=== PATIENT | female | born 1945 | race Caucasian/White ===

== ENCOUNTER 2016-12-10 13:20 | Outpatient (CLI) | payer MEDICARE, OTHER | END 2016-12-10 13:21 | disposition home or self-care (01) | DX: E11.42 Type 2 diabetes mellitus with diabetic polyneuropathy (principal) ==

== ENCOUNTER 2017-04-15 12:35 | Outpatient (CLI) | payer MEDICARE, OTHER | END 2017-04-15 12:36 | disposition home or self-care (01) | DX: K76.0 Fatty (change of) liver, not elsewhere classified (principal) ==

== ENCOUNTER 2017-06-10 13:08 | Outpatient (CLI) | payer MEDICARE, OTHER ==
[2017-06-10 19:48] LABS: ALBUMIN/GLOBULIN RATIO 1.2 (1.0-2.2); BILIRUBIN,TOTAL 0.7 mg/dL (0.2-1.0); BUN - BLOOD UREA NITROGEN 15 mg/dL (6-20); CALCIUM 10.6 mg/dL (8.5-10.3); CARBON DIOXIDE - CO2 27 mmol/L (21-32); CHLORIDE 104 mmol/L (101-111); CHOL/HDL RATIO 4.2 (<4.4); CHOLESTEROL 160 mg/dL; CREATININE 1.1 mg/dL (0.4-1.0); GFR - MDRD 49 (>89); GLUCOSE 96 mg/dL (70-100); HDL CHOLESTEROL 38 mg/dL; LDL/HDL RATIO 2.1 (<4.4); POTASSIUM 3.9 mmol/L (3.5-5.0); SODIUM 140 mmol/L (135-145); TOTAL PROTEIN 7.3 g/dL (6.7-8.2); TRIGLYCERIDES 219 mg/dL; VLDL CHOLESTEROL 44 mg/dL
== END 2017-06-10 13:09 | disposition home or self-care (01) ==
LOC: LAB.N 13:08
PROVIDERS: ATTEND Nurse Practitioner Gerontology
DX: E78.5 Hyperlipidemia, unspecified (principal)
CPT/HCPCS: 36415; 80053; 80061

== ENCOUNTER 2017-07-22 08:00 | Outpatient (CLI) | payer MEDICARE, OTHER ==
[2017-07-22 19:24] LABS: HEMOGLOBIN A1C 1.1 g/dL
== END 2017-07-22 08:01 | disposition home or self-care (01) ==
LOC: LAB.N 08:00
PROVIDERS: ATTEND Nurse Practitioner Gerontology
DX: E11.42 Type 2 diabetes mellitus with diabetic polyneuropathy (principal)
CPT/HCPCS: 36415; 83036

== ENCOUNTER 2017-11-11 09:52 | Outpatient (CLI) | payer MEDICARE, OTHER ==
[2017-11-11 13:05] LABS: HB2 TOTAL 17.2 g/dL; HEMOGLOBIN A1C 0.87 g/dL; HEMOGLOBIN A1C % 6.8 % (4.6-6.2)
== END 2017-11-11 09:53 | disposition home or self-care (01) ==
LOC: LAB.N 09:52
PROVIDERS: ATTEND Nurse Practitioner Gerontology
DX: E11.9 Type 2 diabetes mellitus without complications (principal)
CPT/HCPCS: 36415; 83036

== ENCOUNTER 2017-12-25 08:52 | Outpatient (CLI) | payer MEDICARE, OTHER ==
--- NOTE | 2017-12-25 10:01 | XRAY Report ---
EXAM: CHEST RADIOGRAPHY EXAM DATE: 12/25/2017 09:18 AM. CLINICAL HISTORY: SHORTNESS OF BREATH. COMPARISON: Chest radiograph 05/25/2012. TECHNIQUE: 2 views. FINDINGS: Lungs/Pleura: Increased lung markings. Small left lung base opacity. Blunting left costophrenic angle . Mediastinum: Stable Other: None. IMPRESSION: 1. Obstructive airways disease 2. Small left lung base opacity. Atelectasis or infection 3. Possible small left effusion [facility] Referring Provider Line: [phone] SITE ID: [id number]
[2017-12-25] MEDS ORDERED: ALBUTEROL NEB 2.5 MG/3 ML INH ONE (11:00)
== END 2017-12-25 08:53 | disposition home or self-care (01) ==
LOC: RT 08:52
PROVIDERS: ATTEND Internal Medicine Critical Care Medicine
DX: J44.9 Chronic obstructive pulmonary disease, unspecified (principal); J98.11 Atelectasis
CPT/HCPCS: 71046; 94060; 94729; J7613

== ENCOUNTER 2018-02-27 08:00 | Outpatient (CLI) | payer MEDICARE, OTHER ==
[2018-02-27 19:39] LABS: HB2 TOTAL 18.9 g/dL; HEMOGLOBIN A1C 1.09 g/dL; HEMOGLOBIN A1C % 7.4 % (4.6-6.2)
== END 2018-02-27 08:01 ==
LOC: LAB.WCP 08:00
PROVIDERS: ATTEND Nurse Practitioner Gerontology
DX: E11.9 Type 2 diabetes mellitus without complications (principal)
CPT/HCPCS: 36415; 83036

== ENCOUNTER 2018-04-05 11:22 | Outpatient (CLI) | payer MEDICARE, OTHER ==
--- NOTE | 2018-04-06 09:07 | Ultrasound Report ---
COMPLETE ABDOMINAL ULTRASOUND: 04/05/2018 CLINICAL INDICATION: Pain. COMPARISON: 04/25/2013. TECHNIQUE: Real-time scanning was performed with compliance representative static images obtained. FINDINGS: The liver measures 15.8 cm. Hepatic echogenicity appears normal. No focal parenchymal lesion or intrahepatic biliary dilatation is seen. The common bile duct measures 3 mm. The gallbladder is surgically absent. The visualized pancreas is unremarkable. The right kidney measures 11.8 cm, and demonstrates a 1.6 cm cyst. The left kidney measures 11.7 cm, and demonstrates a 5.1 cm cyst. No hydronephrosis or solid renal lesion is seen. The spleen measures 11.9 cm, and demonstrates normal echotexture. The visualized abdominal aorta is normal in caliber. The inferior vena cava is unremarkable. No free fluid is present. IMPRESSION: CHANGES OF CHOLECYSTECTOMY. INCIDENTAL RENAL CYSTS. TD: 04/06/2018 08:52
== END 2018-04-05 11:23 | disposition home or self-care (01) ==
LOC: DI 11:22
PROVIDERS: ATTEND Nurse Practitioner Gerontology
DX: R10.9 Unspecified abdominal pain (principal); Q61.01 Congenital single renal cyst
CPT/HCPCS: 76700

== ENCOUNTER 2018-06-01 08:00 | Outpatient (CLI) | payer MEDICARE, OTHER ==
[2018-06-01 19:19] LABS: BASOPHILS # (AUTO) 0.1 10^3/uL (0.0-0.1); BASOPHILS % (AUTO) 0.9 %; EOSINOPHILS # (AUTO) 0.2 10^3/uL (0.0-0.7); EOSINOPHILS % (AUTO) 2.6 %; HGB - HEMOGLOBIN 17.2 g/dL (12.0-16.0); LYMPHOCYTES # (AUTO) 1.9 10^3/uL (1.5-3.5); LYMPHOCYTES % (AUTO) 20.3 %; MEAN CORPUSCULAR HEMOGLOBIN 31.1 pg (27.0-31.0); MEAN CORPUSCULAR HGB CONC 32.7 g/dL (32.0-36.0); MEAN CORPUSCULAR VOLUME 95.2 fL (81.0-99.0); MEAN PLATELET VOLUME 11.4 fL (7.9-10.8); MONOCYTES # (AUTO) 0.8 10^3/uL (0.0-1.0); MONOCYTES % (AUTO) 8.2 %; NEUTROPHILS # (AUTO) 6.5 10^3/uL (1.5-6.6); PLT - PLATELET COUNT 201 10^3/uL (130-450); RED BLOOD COUNT 5.51 10^6/uL (4.20-5.40); RED CELL DISTRIBUTION WIDTH 15.3 % (12.0-15.0); WHITE BLOOD COUNT 9.6 x10^3/uL (4.8-10.8)
[2018-06-01 19:34] LABS: HB2 TOTAL 18.7 g/dL; HEMOGLOBIN A1C 1.08 g/dL; HEMOGLOBIN A1C % 7.4 % (4.6-6.2)
== END 2018-06-01 08:01 | disposition home or self-care (01) ==
LOC: LAB.N 08:00
PROVIDERS: ATTEND Nurse Practitioner Gerontology
DX: E11.9 Type 2 diabetes mellitus without complications (principal); D75.1 Secondary polycythemia
CPT/HCPCS: 36415; 83036; 85025

== ENCOUNTER 2018-09-28 09:01 | Outpatient (CLI) | payer MEDICARE, OTHER ==
[2018-09-28 13:23] LABS: HB2 TOTAL 19.2 g/dL; HEMOGLOBIN A1C 0.97 g/dL; HEMOGLOBIN A1C % 6.8 % (4.6-6.2)
== END 2018-09-28 23:59 ==
LOC: LAB.N 09:01
PROVIDERS: ATTEND Nurse Practitioner Gerontology
DX: E11.9 Type 2 diabetes mellitus without complications (principal)
CPT/HCPCS: 36415; 83036

== ENCOUNTER 2019-01-03 08:00 | Outpatient (CLI) | payer MEDICARE, OTHER ==
[2019-01-03 13:20] LABS: HB2 TOTAL 19.1 g/dL; HEMOGLOBIN A1C 0.94 g/dL; HEMOGLOBIN A1C % 6.7 % (4.6-6.2)
== END 2019-01-03 23:59 | disposition home or self-care (01) ==
LOC: LAB.N 08:00
PROVIDERS: ATTEND Nurse Practitioner Gerontology
DX: E11.9 Type 2 diabetes mellitus without complications (principal)
CPT/HCPCS: 36415; 83036

== ENCOUNTER 2019-04-03 08:00 | Outpatient (CLI) | payer MEDICARE, OTHER ==
[2019-04-03 13:31] LABS: HEMOGLOBIN A1C 0.9 g/dL; HEMOGLOBIN A1C % 6.7 % (4.6-6.2)
== END 2019-04-03 23:59 | disposition home or self-care (01) ==
LOC: LAB.N 08:00
PROVIDERS: ATTEND Nurse Practitioner Gerontology
DX: E11.9 Type 2 diabetes mellitus without complications (principal)
CPT/HCPCS: 36415; 83036

== ENCOUNTER 2019-07-24 08:00 | Outpatient (CLI) | payer MEDICARE, OTHER ==
[2019-07-24 19:12] LABS: HB2 TOTAL 18.2 g/dL; HEMOGLOBIN A1C 0.83 g/dL; HEMOGLOBIN A1C % 6.3 % (4.6-6.2)
== END 2019-07-24 23:59 | disposition home or self-care (01) ==
LOC: LAB.N 08:00
PROVIDERS: ATTEND Nurse Practitioner Gerontology
DX: E11.9 Type 2 diabetes mellitus without complications (principal)
CPT/HCPCS: 36415; 83036

== ENCOUNTER 2019-10-25 09:00 | Outpatient (CLI) | payer MEDICARE, OTHER ==
[2019-10-25 13:48] LABS: HB2 TOTAL 17.7 g/dL; HEMOGLOBIN A1C 0.9 g/dL; HEMOGLOBIN A1C % 6.8 % (4.6-6.2)
== END 2019-10-25 23:59 | disposition home or self-care (01) ==
LOC: LAB.N 09:00
PROVIDERS: ATTEND Nurse Practitioner Gerontology
DX: E11.9 Type 2 diabetes mellitus without complications (principal)
CPT/HCPCS: 36415; 83036

== ENCOUNTER 2019-10-30 09:15 | Outpatient (CLI) | payer MEDICARE, OTHER ==
--- NOTE | 2019-10-30 21:44 | XRAY Report ---
Reason: COPD Procedure Date: 10/30/2019 Accession Number: [id number] / [id number] Procedure: XRN - Chest 2 View X-Ray CPT Code: 60840 Final Report FULL RESULT: EXAM: CHEST RADIOGRAPHY EXAM DATE: 10/30/2019 09:55 AM. CLINICAL HISTORY: Shortness of breath. COMPARISON: CHEST 2 VIEW 12/25/2017 9:02 AM. TECHNIQUE: 2 views. FINDINGS: Lungs/Pleura: Interval developing mild pulmonary edema pattern, with small bilateral effusions, left greater than right. Mediastinum: Heart and mediastinal contours are unremarkable. Other: None. IMPRESSION: Developing mild pulmonary edema pattern with small bilateral effusions, left greater than right. [facility]
== END 2019-10-30 09:16 | disposition home or self-care (01) ==
LOC: DI.N 09:15
PROVIDERS: ATTEND Nurse Practitioner Gerontology
DX: J81.1 Chronic pulmonary edema (principal); J90 Pleural effusion, not elsewhere classified
CPT/HCPCS: 71046

== ENCOUNTER 2020-03-18 09:17 | Outpatient (CLI) | payer MEDICARE, OTHER ==
--- NOTE | 2020-03-18 14:14 | CT Report ---
Reason: ERYTHROCYTOSIS Procedure Date: 03/18/2020 Accession Number: [id number] / [id number] Procedure: CT - CHEST WO CPT Code: Final Report FULL RESULT: EXAM: CT CHEST EXAM DATE: 03/18/2020 09:40 AM. CLINICAL HISTORY: Erythrocytosis. COMPARISONS: CHEST W/ 01/11/2019 12:01 PM CHEST 2 VIEW 10/30/2019 9:59 AM CHEST 2 VIEW 12/25/2017 9:02 AM. TECHNIQUE: Routine helical CT imaging was performed through the chest. IV contrast: None. Reconstructions: Coronal and sagittal. In accordance with CT protocol optimization, one or more of the following dose reduction techniques were utilized for this exam: automated exposure control, adjustment of mA and/or KV based on patient size, or use of iterative reconstructive technique. FINDINGS: Lungs/Pleura: Extensive centrilobular emphysematous changes again seen. There is peripheral left basilar lower lobe parenchymal scarring and pleural thickening, as before. Right middle lobe and lingular scarring is also seen, also present in the lateral and medial and apical left upper lobe. Right apical parenchymal scarring and pleural thickening also present. No vascular congestion. No endobronchial obstruction. No pneumothorax. Mediastinum: Heart size is normal. Small hiatal hernia. Coronary artery calcified plaque. No enlarged mediastinal or hilar lymph nodes. Visualized thyroid gland is unremarkable. Changes are seen from median sternotomy and bypass surgery, as before. No mediastinal fluid collections. Bones: Degenerative changes of the thoracic spine. No acute osseous abnormalities. Stable changes status post median sternotomy. Visualized Abdomen: Included portions of the liver, spleen and pancreas are unremarkable. Surgical clips are seen in the upper abdomen. Status post cholecystectomy. Right adrenal nodule is again seen measuring on the current study approximately 32 x 26 mm, measured by my measurement with the purpose of consistency on the prior study 30 x 28 mm, and based on Hounsfield unit interrogation is consistent with an adenoma. Adjacent lobular nodules are again seen in the left adrenal gland, largest medially by the body measuring 15 mm , stable. Low-attenuation lesion posterior right kidney measuring 27 mm and partly included in left kidney measuring 52 mm seen previously. Smaller low-attenuation lesions seen previously are not seen on these noncontrast images. Abdominal aorta atherosclerosis. Changes seen from upper abdominal ventral hernia repair. Included portions of the remainder of the upper abdominal bowel are unremarkable. Other: None. IMPRESSION: 1. Extensive emphysematous changes. Multifocal parenchymal scarring and pleural thickening particularly involving the left mid and lower lung. 2. No thoracic adenopathy. 3. Status post median sternotomy and bypass surgery. 4. Stable bilateral adrenal nodules. Bilateral renal low-attenuation lesions better seen on the prior studies. [facility]
== END 2020-03-18 09:18 | disposition home or self-care (01) ==
LOC: MAC.INF 09:17
PROVIDERS: ATTEND Internal Medicine Hematology & Oncology
DX: D75.1 Secondary polycythemia (principal); J43.2 Centrilobular emphysema; R91.8 Other nonspecific abnormal finding of lung field; R93.89 Abnormal findings on diagnostic imaging of other specified body structures
CPT/HCPCS: 71250

== ENCOUNTER 2020-06-30 16:12 | Outpatient (CLI) | payer MEDICARE, OTHER | END 2020-06-30 16:13 | disposition short-term general hospital (02) | LOC: EMS 16:12 | PROVIDERS: ATTEND Surgery | DX: R06.00 Dyspnea, unspecified (principal); R05 Cough | CPT/HCPCS: A0425; A0427 ==

== ENCOUNTER 2021-07-27 09:11 | Outpatient (CLI) | payer MEDICARE, OTHER ==
--- NOTE | 2021-07-27 11:50 | XRAY Report ---
PROCEDURE: Lumbar Spine 2 View INDICATIONS: DORSOPATHY, DORSALGIA TECHNIQUE: 2 views of the lumbar spine were acquired. COMPARISON: 03/26/2016 FINDINGS: Bones: 5 [id number] vertebrae are present. Decreased mineralization. Focal rightward curvature of the upper lumbar spine with the apex at the L1-2 level. Mild inferior endplate wedge deformity of L2, stable compared to the prior study. Trace retrolisthesis L2 on 3 and trace anterolisthesis L4 on 5 and L5 on S1. Minimal change compared to prior. Mild facet sclerosis mainly at L5-S1. Mild disc hei ght loss at L2-3. Otherwise normally maintained disc heights. Soft tissues: Heavy abdominal aortic atherosclerosis. There is been interval increase in size of the peripherally calcified abdominal aortic aneurysm which attention measures up to 6.2 cm in diameter. Overlying bowel gas pattern is normal. No suspicious soft tissue calcifications. IMPRESSION: 1. Osteopenia with a chronic, very mild, and stable L2 compression fracture. 2. Degenerative dextroscoliosis. 3. Minimal listhesis, fairly stable compared to prior. 4. Increased size of calcified abdominal aortic aneurysm. Abdominal aortic ultrasound is recommended. Reviewed by: Marisa Villagran MD on 07/27/2021 11:49 AM PDT Approved by: Marisa Villagran MD on 07/27/2021 11:49 AM PDT Station ID: [id number]
--- NOTE | 2021-07-27 12:56 | XRAY Report ---
PROCEDURE: Thoracic Spine 2 View INDICATIONS: DORSOPATHY, DORSALGIA TECHNIQUE: 3 views of the thoracic spine were acquired. COMPARISON: None. FINDINGS: Bones: There is generalized osteopenia. No acute fractures or dislocations. No suspicious bony lesi ons. 12 pairs of ribs are noted, and appear intact where visualized. There is mild dextroconvex cur vature of the included upper lumbar spine. Soft tissues: No paravertebral stripe thickening. Moderate aortic atherosclerotic calcifications. IMPRESSION: No acute osseous abnormality. Reviewed by: Luis Grijalva MD on 07/27/2021 12:55 PM PDT Approved by: Luis Grijalva MD on 07/27/2021 12:55 PM PDT Station ID: [id number]
== END 2021-07-27 09:12 | disposition home or self-care (01) ==
LOC: DI 09:11
PROVIDERS: ATTEND Family Medicine
DX: M85.88 Other specified disorders of bone density and structure, other site (principal); M41.9 Scoliosis, unspecified; M43.16 Spondylolisthesis, lumbar region; I71.4 Abdominal aortic aneurysm, without rupture; M48.56XA Collapsed vertebra, not elsewhere classified, lumbar region, initial encounter for fracture

== ENCOUNTER 2021-08-24 11:02 | Outpatient (CLI) | payer MEDICARE, OTHER ==
--- NOTE | 2021-08-24 17:20 | DEXA Report ---
PROCEDURE: Dexa Spine and/or Hip INDICATIONS: OSTEOARTHRITIS TECHNIQUE: Dual energy x-ray absorptiometry (DXA) was performed on a [employer] System. Regions measur ed are the AP Spine, femoral neck, and if needed forearm. COMPARISON: 06/01/2016. FINDINGS: Lumbar Spine: Bone Mineral Density 1.042 g/cm/cm,T score -1.1, osteopenia Left Hip: Bone Mineral Density 0.665 g/cm/cm,T score -2.7, osteoporosis Left Femoral Neck: Bone Mineral Density 0.650 g/cm/cm, T score -2.8, osteoporosis (T score greater or equal to -1.0: NORMAL) (T score from -1.1 to -2.4: OSTEOPENIA) (T score less than or equal to -2.5 to: OSTEOPOROSIS) Impression: Osteoporosis. Bone mineral density has decreased 10.7% in the interval since prior exam o btained 06/01/2016. Patients with diagnosis of osteoporosis or osteopenia should have regular bone mineral density assess ment. For those eligible for Medicare, routine testing is allowed once every 2 years. Testing frequ ency can be increased for patients who have rapidly progressing disease or for those who are receivin g medical therapy to restore bone mass. Reviewed by: Ellie Ralph MD, PhD on 08/24/2021 5:19 PM PDT Approved by: Ellie Ralph MD, PhD on 08/24/2021 5:19 PM PDT Station ID: [id number]
== END 2021-08-24 11:03 | disposition home or self-care (01) ==
LOC: DI 11:02
PROVIDERS: ATTEND Family Medicine
DX: M15.0 Primary generalized (osteo)arthritis (principal); N95.9 Unspecified menopausal and perimenopausal disorder; M81.0 Age-related osteoporosis without current pathological fracture

== ENCOUNTER 2021-08-24 11:04 | Outpatient (CLI) | payer MEDICARE, OTHER ==
--- NOTE | 2021-08-24 14:10 | Ultrasound Report ---
PROCEDURE: Retroperitoneal Limited INDICATIONS: AAA TECHNIQUE: Real time scanning was performed of the aorta and iliac arteries, with image documentatio n. COMPARISON: FINDINGS: Aorta: Proximal aortic diameter measures 2.1 x 2.2 cm. Mid-aorta measures 4.3 x 4.1 cm. Distal aor tic diameter is 1.4 x 1.4 cm. Scattered atherosclerotic plaque. Iliac arteries: Not visualized. IMPRESSION: Mild aneurysmal dilation within the mid aorta as above. Reviewed by: Melissa Gill MD on 08/24/2021 2:09 PM PDT Approved by: Melissa Gill MD on 08/24/2021 2:09 PM PDT Station ID: [id number]
== END 2021-08-24 11:05 | disposition home or self-care (01) ==
LOC: DI 11:04
PROVIDERS: ATTEND Family Medicine
DX: I71.4 Abdominal aortic aneurysm, without rupture (principal); M15.0 Primary generalized (osteo)arthritis; N95.9 Unspecified menopausal and perimenopausal disorder; M81.0 Age-related osteoporosis without current pathological fracture

== ENCOUNTER 2023-03-03 09:38 | Outpatient (CLI) | payer MEDICARE, OTHER ==
--- NOTE | 2023-03-03 13:48 | Ultrasound Report ---
PROCEDURE: Retroperitoneal Limited INDICATIONS: AAA TECHNIQUE: Real time scanning was performed of the aorta and iliac arteries, with image documentatio n. COMPARISON: Aorta ultrasound 08/24/2021. FINDINGS: Significantly limited examination due to patient body habitus, bowel gas, inability to lie flat and b reath-hold. Most of the abdominal aorta is not well visualized. The mid abdominal aorta, likely above the level of the renal arteries, measures approximately 4.9 x 6.2 cm in the transverse plane. On the prior ultrasound, similar measurement was approximately 4.1 x 3.8 cm. IMPRESSION: Significantly limited examination due to technical factors as above. Suspect there has been an increa se in size of the previously demonstrated abdominal aortic aneurysm, now measuring up to 6.2 cm. [facility] ular surgery consultation may be helpful to direct further management, could consider CT angiogram of the abdomen and pelvis as clinically indicated. Reviewed by: Luis Munoz MD on 03/03/2023 1:46 PM PDT Approved by: Luis Munoz MD on 03/03/2023 1:46 PM PDT Station ID: [id number]
== END 2023-03-03 09:39 | disposition home or self-care (01) ==
LOC: DI 09:38
PROVIDERS: ATTEND Family Medicine
DX: I71.40 Abdominal aortic aneurysm, without rupture, unspecified (principal)

== ENCOUNTER 2024-07-20 08:43 | Outpatient (CLI) | payer MEDICARE, OTHER ==
--- NOTE | 2024-07-20 16:03 | XRAY Report ---
Abdomen 1 V HISTORY: 79 years of age, EPIGASTRIC PAIN TECHNIQUE: Abdomen 1 V COMPARISON: None. FINDINGS/IMPRESSION: Suggestion of small left pleural effusion. Nonobstructive bowel gas pattern. Limited evaluation of fr ee intraperitoneal air given supine view. Surgical clips project over the abdomen and pelvis. Dextroscoliosis of the lumbar spine. Reviewed by: Leni Santa MD on 07/20/2024 4:02 PM PDT Approved by: Leni Santa MD on 07/20/2024 4:02 PM PDT Station ID: [id number]
== END 2024-07-20 08:44 | disposition home or self-care (01) ==
LOC: DI.N 08:43
PROVIDERS: ATTEND Family Medicine
DX: R10.13 Epigastric pain (principal); M41.9 Scoliosis, unspecified

== ENCOUNTER 2025-02-07 08:10 | Inpatient (IN) ==
[2025-02-07 08:28] LABS: BASOPHILS # (AUTO) 0.1 10^3/uL (0.0-0.1); BASOPHILS % (AUTO) 0.5 %; EOSINOPHILS # (AUTO) 0.8 10^3/uL (0.0-0.7); EOSINOPHILS % (AUTO) 5.4 %; HCT - HEMATOCRIT 45.1 % (37.0-47.0); HGB - HEMOGLOBIN 14.6 g/dL (12.0-16.0); LYMPHOCYTES # (AUTO) 1.6 10^3/uL (1.5-3.5); LYMPHOCYTES % (AUTO) 11.1 %; MEAN CORPUSCULAR HEMOGLOBIN 32.4 pg (27.0-31.0); MEAN CORPUSCULAR HGB CONC 32.4 g/dL (32.0-36.0); MEAN CORPUSCULAR VOLUME 100.2 fL (81.0-99.0); MEAN PLATELET VOLUME 10.3 fL (7.9-10.8); MONOCYTES # (AUTO) 1.2 10^3/uL (0.0-1.0); MONOCYTES % (AUTO) 7.9 %; NEUTROPHILS % (AUTO) 74.7 %; PLT - PLATELET COUNT 240 10^3/uL (130-450); RED CELL DISTRIBUTION WIDTH 14.7 % (12.0-15.0); WHITE BLOOD COUNT 14.7 x10^3/uL (4.8-10.8)
[2025-02-07 08:30] LABS: VBG PCO2 67.8 mmHg (41-51); VBG PH 7.337 (7.31-7.41); VBG PO2 107.3 mmHg (25-47)
[2025-02-07 08:31] LABS: VBG BASE EXCESS 10.7 mmol/L (-2 - +2); VBG TOTAL CO2 38.8 mmol/L (24-29)
[2025-02-07 08:39] LABS: MAGNESIUM 2.1 mg/dL (1.7-2.3)
[2025-02-07 08:45] LABS: ALBUMIN 3.4 g/dL (3.2-5.5); ALBUMIN/GLOBULIN RATIO 1.2 (1.0-2.2); BILIRUBIN,TOTAL 0.4 mg/dL (0.2-1.0); CALCIUM 10.5 mg/dL (8.5-10.3); POTASSIUM 3.6 mmol/L (3.5-4.5); TOTAL PROTEIN 6.3 g/dL (6.4-8.9)
--- NOTE | 2025-02-07 08:49 | XRAY Report ---
PROCEDURE: XR Chest 1V INDICATIONS: SOA TECHNIQUE: One view of the chest was acquired. COMPARISON: None. FINDINGS: Surgical changes and devices: None. Lungs and pleura: Left greater than right bilateral pleural effusion and pulmonary vascular congesti on. There is suggestion of pulmonary edema. Ill-defined airspace opacities are noted in bilateral noel g wilkerson concerning for superimposed interstitial infiltrates. Elevation of left hemidiaphragm. No pn eumothorax. Mediastinum: Mediastinal contours appear normal. Heart size is enlarged. Bones and chest wall: No suspicious bony lesions. Overlying soft tissues appear unremarkable. IMPRESSION: Finding is suggestive of CHF. Superimposed bilateral pulmonary infiltrates cannot be excluded. No sherly ss pneumothorax. Reviewed by: Ki De La Cruz MD on 02/07/2025 8:47 AM PDT Approved by: Ki De La Cruz MD on 02/07/2025 8:47 AM PDT Station ID: [id number]
[2025-02-07] MEDS: cefTRIAXone 1 GM in SODIUM CHLORIDE 0.9% MINIBAG 100 ML IV STA (09:02)
[2025-02-07] MEDS ORDERED: iohexoL-300 100 ML VIAL ONE (09:16)
[2025-02-07 09:36] LABS: B. PARAPERTUSSIS- RESP PCR PAN NOT DETECTED; B. PERTUSSIS- RESP PCR PANEL NOT DETECTED; C. PNEUMONIAE- RESP PCR PANEL NOT DETECTED; CORONAVIRUS 229E-RESP PCR NOT DETECTED; CORONAVIRUS HKU1-RESP PCR NOT DETECTED; CORONAVIRUS NL63-RESP PCR NOT DETECTED; CORONAVIRUS OC43-RESP PCR NOT DETECTED; HUMAN METAPNEUMOVIRUS NOT DETECTED; INFLUENZA A- RESP PCR PANEL NOT DETECTED; INFLUENZA B - RESP PCR PANEL NOT DETECTED; M. PNEUMONIAE- RESP PCR PANEL NOT DETECTED; PARAINFLUENZA VIRUS 1 NOT DETECTED; PARAINFLUENZA VIRUS 2 NOT DETECTED; PARAINFLUENZA VIRUS 4 NOT DETECTED; RHINOVIRUS/ENTEROVIRUS NOT DETECTED; RSV- RESP PCR PANEL NOT DETECTED; SARS-CoV-2 -RESP PCR PANEL NOT DETECTED
[2025-02-07 09:56] LABS: BILIRUBIN,URINE NEGATIVE (NEGATIVE); GLUCOSE, URINE (UA) NEGATIVE (NEGATIVE); KETONES,URINE (UA) NEGATIVE (NEGATIVE); LEUKOCYTE ESTERASE, URINE NEGATIVE (NEGATIVE); NITRITE,URINE NEGATIVE (NEGATIVE); OCCULT BLOOD,URINE NEGATIVE (NEGATIVE); PH,URINE 6.5 PH (5.0-7.5); PROTEIN,URINE 30 mg/dL (NEGATIVE); UROBILINOGEN,URINE 0.2 (NORMAL) E.U./dL (NORMAL)
[2025-02-07 09:58] LABS: CLARITY,URINE CLEAR (CLEAR)
[2025-02-07] MEDS: iohexoL-300 100 ML VIAL IVP ONE (10:01)
--- NOTE | 2025-02-07 10:26 | CT Report ---
PROCEDURE: CT Angio Chest INDICATIONS: Rule out PE CONTRAST: 80ml omni 300 TECHNIQUE: After the administration of intravenous contrast, 2 mm axial images were acquired from the pulmonary apices to the posterior costophrenic angles during the arterial phase. In addition, 1 mm lung kernel and 5 mm soft tissue kernel reconstructions were performed. 3-dimensional coronal oblique maximum int ensity projection (MIP) reformats, 8 mm axial MIP, and 5 mm coronal and sagittal MPR reformats were t hen performed through the thorax. For radiation dose reduction, the following was used: automated exp osure control, adjustment of mA and/or kV according to patient size. COMPARISON: CT chest dated 10/13/2024. FINDINGS: Image quality: Excellent. Large vessels: No filling defects within the opacified pulmonary arteries, accounting for motion and contrast timing. No evidence of acute aortic syndrome or aortic aneurysm. Lungs and pleura: There is moderate left pleural effusion with compressive atelectasis in posterior l ateral aspect of left lower lobe. Underlying neoplastic process cannot be entirely excluded. Of moder ate centrilobular emphysema. Biapical scarring. 1 cm solid nodule is seen in posterior right apex ser ies 6 image 53 not definitely seen on prior study. Trace right pleural effusion and right basilar ate lectasis versus small infiltrates are seen. Mediastinum: Heart size is borderline enlarged. No pericardial effusion. No large vessel abnormality. No mediastinal adenopathy by size criteria. Chest wall and lower neck: Asymmetrically enlarged right thyroid lobe with hypodense nodule in lower pole right thyroid lobe is seen measures 1.3 x 1.1 cm in size. No axillary or supraclavicular adenopa thy by size. Bones: No aggressive osseous abnormality. Upper Abdomen: Unremarkable. IMPRESSION: 1. No pulmonary embolus. No thoracic aortic aneurysm or gross dissection. 2. Moderate left-sided pleural effusion with compressive atelectasis in left lower lobe. Underlying n eoplastic process cannot be excluded. Follow-up until resolution is recommended. 3. Trace right pleural effusion with small right basilar infiltrate/atelectasis. Right apical scarrin g and moderate centrilobular emphysema. No pneumothorax. 1 cm solid nodule seen in posterior aspect o f right apex not seen on previous study and may represent focal nodular scarring/atelectasis. Short-t erm chest CT follow-up in 3 months is recommended. 4. No mediastinal or hilar lymphadenopathy. 5. Right thyroid lobe nodule as above. Nonemergent ultrasound directly can be done for further evalua tion of this region if indicated. Reviewed by: Ki De La Cruz MD on 02/07/2025 10:25 AM PDT Approved by: Ki De La Cruz MD on 02/07/2025 10:25 AM PDT Station ID: [id number]
[2025-02-07 10:41] LABS: BACTERIA,URINE Few /HPF (None Seen); RBC,URINE 0-5 /HPF (0-5); SQUAMOUS EPITHELIAL CELL,UR MOD Squamous (<= Few); WBC,URINE 0-3 /HPF (0-5)
[2025-02-07] MEDS: AZITHROMYCIN INJ 500 MG in SODIUM CHLORIDE 0.9% 250 ML IV STA (11:02)
--- NOTE | 2025-02-07 11:36 | HISTORY & PHYSICAL EXAMINATION ---
Chief Complaint Chief Complaint Chief Complaint: Difficulty breathing History of Present Illness Admitted From Admitted From:: Home History Obtained From Records Reviewed: EMR History obtained from: Patient Exam Limitations: None History of Present Illness HPI Comment/Other: Patient is a 79-year-old female with a history of COPD on 3 L of oxygen at home who presents with worsening dyspnea, cough at home. She states that it has been going on for 2 weeks, and has steadily been worsening. She had some prednisone at home, and has been utilizing it daily without any relief. She also has multiple inhalers at home that she has been using without any relief. She denies any sick contacts. She takes daily Lasix every day, and has not missed any doses. She states that initially it started off with a cough, initially was yellow to green sputum production, and then she states that she has been coughing up some blood. She has also had some ongoing chills. She also complains of some postnasal drip and a sore throat. She used to smoke about 4 to 5 packs of cigarettes a day. She is now down to 1 pack every 3 to 4 days. In the emergency room, when patient presented, she was saturating 100%, but she came in on BIPAP. She is normotensive with blood pressure 120/59, heart rate was 102, respiratory rate was initially 40, and improved to 20. She was given a dose of IV Solu-Medrol, received breathing treatments, as well as Rocephin and azithromycin, and was admitted for acute hypoxic respiratory failure. CTA done on admission showed no pulmonary embolism, but did show a moderate left-sided pleural effusion with some compressive atelectasis in the left lower lobe. She also has a moderate centrilobular emphysema, as well as multiple nodules. Meds/Allgy Home Medications Ambulatory Orders Medication Instructions Recorded Confirmed atorvastatin 80 mg tablet (Lipitor) 80 mg PO HS 04/18/13 10/05/24 budesonide-formoterol HFA 160 2 puff inhalation DAILY 04/18/13 10/05/24 mcg-4.5 mcg/actuation aerosol inhaler (Symbicort) ezetimibe 10 mg tablet 10 meq PO QD 04/18/13 10/05/24 furosemide 40 mg tablet (Lasix) 40 mg PO DAILY 04/18/13 10/05/24 ibuprofen 800 mg tablet 800 mg PO Q8H PRN PAIN &/OR FEVER 04/18/13 10/05/24 isosorbide mononitrate 30 mg 30 mg PO BID 04/18/13 10/05/24 tablet,extended release 24 hr lorazepam 0.5 mg tablet 0.5 mg PO BID 04/05/14 10/05/24 albuterol sulfate 2.5 mg/3 mL 2.5 mg inhalation PRN PRN As 04/19/18 10/05/24 (0.083 %) solution for nebulization Needed Per Provider Orders Pgx Daily 1 tab PO DAILY 06/03/20 10/05/24 cholecalciferol (vitamin D3) 1,250 2,000 mcg PO DAILY 06/03/20 10/05/24 mcg (50,000 unit) capsule ipratropium 0.5 mg-albuterol 3 mg 1 applic PO Q4HR 06/03/20 10/05/24 (2.5 mg base)/3 mL nebulization soln nitroglycerin 0.4 mg sublingual 0.4 mg sublingual PRN PRN Angina 06/03/20 10/05/24 tablet benzonatate 100 mg capsule 100 mg PO TID PRN cough #30 caps 10/05/24 10/05/24 benzonatate 200 mg capsule 200 mg PO BID 02/07/25 clonidine HCl 0.1 mg tablet 0.1 mg PO BID 02/07/25 clopidogrel 75 mg tablet 75 mg PO DAILY 02/07/25 escitalopram oxalate 5 mg tablet 5 mg PO DAILY 02/07/25 insulin aspart U-100 100 unit/mL subcut 02/07/25 (3 mL) subcutaneous pen (Novolog FlexPen U-100 Insulin aspart) insulin glargine 100 unit/mL (3 46 unit subcut QPM 02/07/25 mL) subcutaneous pen (Lantus Solostar U-100 Insulin) levalbuterol HCl 0.63 mg/3 mL mg inhalation 02/07/25 solution for nebulization loratadine 10 mg tablet 10 mg PO DAILY 02/07/25 losartan 50 mg tablet 50 mg PO DAILY 02/07/25 metoprolol succinate 50 mg 100 mg PO DAILY 02/07/25 tablet,extended release 24 hr montelukast 5 mg chewable tablet 5 mg PO DAILY PM 02/07/25 omeprazole 40 mg capsule,delayed 40 mg PO DAILY 02/07/25 release Allergies Allergies Allergy/AdvReac Type Severity Reaction Status Date / Time adhesive Allergy Itching Verified 02/07/25 08:33 latex Allergy unknown Verified 02/07/25 08:33 Sulfa (Sulfonamide Allergy rash Verified 02/07/25 08:33 Antibiotics) "deathly sick" [facility] Active Problems All Active Problems (Updated 02/07/25 @ 14:17 by Lissa Bernstein MD) Insulin dependent diabetes mellitus (Acute) CAD (coronary artery disease) (Acute) Acute hypoxic respiratory failure (Acute) Pleural effusion (Acute) Respiratory failure (Acute) Chest x-ray abnormality (Acute) COPD with acute exacerbation (Acute) Social History Social History Smoking Status: Current every day smoker Number of Years Smoked: 76 How many cigarettes a day do you smoke? (20 cigarettes=1 Pk): 80 Second hand tobacco smoke exposure: Yes Do you dip or chew tobacco?: No Do you vape?: No Patient requests smoking cessation consult: No Initiate information on smoking cessation: No Relationship: Level: Independent Do you feel safe in your home environment?: Yes Suffered physical, verbal, emotional, or financial abuse?: No Review of Systems Constitutional Reports: Fatigue, Malaise, Weakness and Diaphoresis; Denies: Fever or Chills Eyes Denies: Pain, Irritation, Amaurosis, Blurry vision, Floaters, Field loss or Vision loss Ears, nose, mouth, and throat Denies: Ear pain, Ear discharge, Hearing loss, Hearing aids, Neck pain or Throat swelling Cardiovascular Reports: shortness of breath with exertion; Denies: Irregular heart rate, chest pain, palpitations or edema Respiratory Reports: Shortness of breath, Cough, Sputum production and Change in phlegm color; Denies: Wheezing Gastrointestinal Denies: Abdominal pain, Nausea, Vomiting or Poor appetite Genitourinary Denies: Painful urination, Urinary frequency, Urinary urgency, Nocturia or Urinary incontinence Musculoskeletal Reports: Back pain and Extremity swelling (mild); Denies: Neck pain or Extremity pain Integumentary/Breast Denies: Rash, Itching, Dryness, Redness or Skin pain Neurological Reports: Headache; Denies: General weakness, Focal weakness or Dizziness Psychiatric Denies: Depression, Anxiety, Mood swings or Panic attacks Endocrine Reports: Fatigue; Denies: Excessive urination or Excessive thirst Hematologic/Lymphatic Denies: Anemia, Easy bruising, Petechiae or Easy bleeding Allergic/Immunologic Denies: Hives, Throat swelling, Tongue swelling or Wheezing Prior Level of Functionality: Ambulates independently. Uses 3-4L of oxygen at home. Gets very short of breath with even slight activity. Exam Constitutional abnormal general appearance, distress noted (mild) and (respiratory), abnormal body habitus (overweight), no limitations and alert HENMT normocephalic and head/scalp atraumatic Eyes PERRL and EOMs intact bilaterally Neck/C-Spine visual inspection normal and trachea midline Chest inspection of chest normal Respiratory breath sounds equal bilaterally, abnormal respiratory effort (shallow breathing), (pursed lip breathing) and (labored), auscultation abnormal and wheezing noted (mild) (expiratory wheezes) Bibasilar crackles noted Cardiovascular heart rate abnormal (tachycardic), regular rhythm noted, no gallop and no murmur Gastrointestinal abdomen normal to inspection, nondistended, no hepatosplenomegaly and no masses Genitourinary no CVA tenderness Extremities normal to inspection, normal to palpation and full ROM Neurology no movement abnormality noted and no focal motor deficit noted Psychiatry mental status grossly normal, oriented x3, thought process normal and cooperative Skin skin color normal and no rash Conclusion/Plan Problem List (1) Acute hypoxic respiratory failure: Plan: Patient alternating between BiPAP for work of breathing and her 3 L of home oxygen. CTA does show moderate pleural effusion. Will continue with IV diuresis, Lasix 40 mg daily. Patient also has some mild expiratory wheezing. Will continue IV Solu-Medrol 40 mg every 6 hours, as well as scheduled DuoNebs. Continue Rocephin and azithromycin for possible superimposed bacterial pneumonia in setting of leukocytosis, chills at home, productive cough. (2) Pleural effusion: Plan: Continue diuresis as stated above. If unsuccessful, will consider thoracentesis for symptomatic relief. (3) COPD with acute exacerbation: Plan: Patient currently actively smoking. Remains on 4 L of oxygen at home. Is a DO NOT RESUSCITATE, DO NOT INTUBATE. Extensive code discussion, as well as goals of care discussion happened. Continue management as above. (4) CAD (coronary artery disease): Plan: Patient states that she has a history of a CABG in the past. Unclear which medication she is on i.e. aspirin versus Plavix versus both. Med reconciliation in process. Qualifiers: Associated angina: without angina Coronary Disease-Associated Artery/Lesion type: unspecified vessel or lesion type [place] vs. transplanted heart: [place] heart Qualified Code(s): I25.10 - Atherosclerotic heart disease of [place] coronary artery without angina pectoris (5) Insulin dependent diabetes mellitus: Plan: Continue sliding scale insulin, long-acting insulin at night, hypoglycemic protocol in place. Lab Results Lab results reviewed: Yes 02/07/25 08:20 02/07/25 08:20 Diagnostic Imaging Results Diagnostic Imaging Results: positive Final report reviewed EKG Results EKG Interpreted Independently: Yes Core Measures Anticipated LOS I expect patient to be DC'd or transferred within 96 hours.: Yes Issues Hospital Issues and Management Plan: None anticipated. DVT/VTE - Prophylaxis VTE/DVT Device ordered at admit?: Yes VTE/DVT Prophylaxis med ordered at admit?: Yes
--- NOTE | 2025-02-07 11:41 | ED Physician Documentation ---
History of Present Illness Stated complaint Stated Complaint: COPD EXACERBATION Chief complaint Chief Complaint: Resp Additonal information Additional information: 79-year-old female with past medical significant for COPD, chronic hypoxic respiratory failure on 4 L baseline presents shortness of breath. Reports progressively worsening shortness of breath times last several days. Is currently on oral prednisone. Breathing worsened substantially earlier today. Reports chest tightness but denies pain. Endorses for cough but denies fever. Received DuoNeb and started on continuous albuterol as well as given 125 mg Solu-Medrol prior to arrival. [place] Coma Scale Assess Eye opening: Spontaneous Verbal response: Oriented Motor response: Obeys Commands Total score: 15 Review of Systems Status of ROS: 10 or more systems reviewed and unremarkable except as noted in history and below Cardiovascular Reports: shortness of breath with exertion Respiratory Reports: Shortness of breath, Cough and Sputum production Meds/Allgy Home Medications Ambulatory Orders Medication Instructions Recorded Confirmed atorvastatin 80 mg tablet (Lipitor) 80 mg PO HS 04/18/13 02/07/25 budesonide-formoterol HFA 160 2 puff inhalation DAILY 04/18/13 02/07/25 mcg-4.5 mcg/actuation aerosol inhaler (Symbicort) ezetimibe 10 mg tablet 10 meq PO DAILY 04/18/13 02/07/25 furosemide 40 mg tablet (Lasix) 40 mg PO DAILY 04/18/13 02/07/25 ibuprofen 800 mg tablet 800 mg PO Q8H PRN PAIN &/OR FEVER 04/18/13 02/07/25 isosorbide mononitrate 30 mg 30 mg PO BID 04/18/13 02/07/25 tablet,extended release 24 hr lorazepam 0.5 mg tablet 0.5 mg PO BID 04/05/14 02/07/25 albuterol sulfate 2.5 mg/3 mL 2.5 mg inhalation PRN PRN As 04/19/18 02/07/25 (0.083 %) solution for nebulization Needed Per Provider Orders Pgx Daily 1 tab PO DAILY 06/03/20 02/07/25 ipratropium 0.5 mg-albuterol 3 mg 1 applic PO Q4HR 06/03/20 02/07/25 (2.5 mg base)/3 mL nebulization soln nitroglycerin 0.4 mg sublingual 0.4 mg sublingual PRN Angina 06/03/20 02/07/25 tablet aspirin 81 mg tablet,delayed 81 mg PO DAILY 02/07/25 02/07/25 release (Adult Aspirin Regimen) benzonatate 200 mg capsule 200 mg PO BID PRN cough 02/07/25 02/07/25 calcium 315 mg (as 1 tab PO BID 02/07/25 02/07/25 citrate)-vitamin D3 5 mcg (200 unit) tablet (Calcium Citrate + D) chromium picolinate 500 mcg capsule 500 mcg PO TID 02/07/25 02/07/25 clonidine HCl 0.1 mg tablet 0.1 mg PO BID 02/07/25 02/07/25 clopidogrel 75 mg tablet 75 mg PO DAILY 02/07/25 02/07/25 docusate sodium 100 mg tablet 100 mg PO BID 02/07/25 02/07/25 escitalopram oxalate 5 mg tablet 5 mg PO DAILY 02/07/25 02/07/25 insulin aspart U-100 100 unit/mL 1 sliding scale dose subcut AC 02/07/25 02/07/25 (3 mL) subcutaneous pen (Novolog FlexPen U-100 Insulin aspart) insulin glargine 100 unit/mL (3 35 unit subcut QPM 02/07/25 02/07/25 mL) subcutaneous pen (Lantus Solostar U-100 Insulin) levalbuterol HCl 0.63 mg/3 mL 0.63 mg inhalation Q4H PRN 02/07/25 02/07/25 solution for nebulization shortness of breath or wheezing loratadine 10 mg tablet 10 mg PO DAILY 02/07/25 02/07/25 losartan 50 mg tablet 50 mg PO DAILY 02/07/25 02/07/25 metoprolol succinate 50 mg 50 mg PO BID 02/07/25 02/07/25 tablet,extended release 24 hr montelukast 5 mg chewable tablet 5 mg PO DAILY PM 02/07/25 02/07/25 omeprazole 40 mg capsule,delayed 40 mg PO BIDAC 02/07/25 02/07/25 release valacyclovir 500 mg tablet 500 mg PO DAILY 02/07/25 02/07/25 Allergies Allergies Allergy/AdvReac Type Severity Reaction Status Date / Time adhesive Allergy Itching Verified 02/07/25 08:33 latex Allergy unknown Verified 02/07/25 08:33 Sulfa (Sulfonamide Allergy rash Verified 02/07/25 08:33 Antibiotics) "deathly sick" [facility] Active Problems All Active Problems (Updated 02/07/25 @ 14:17 by Lissa Bernstein MD) Insulin dependent diabetes mellitus (Acute) CAD (coronary artery disease) (Acute) Acute hypoxic respiratory failure (Acute) Pleural effusion (Acute) Respiratory failure (Acute) Chest x-ray abnormality (Acute) COPD with acute exacerbation (Acute) Social History Social History Smoking Status: Current every day smoker Number of Years Smoked: 76 How many cigarettes a day do you smoke? (20 cigarettes=1 Pk): 80 Second hand tobacco smoke exposure: Yes Do you dip or chew tobacco?: No Do you vape?: No Patient requests smoking cessation consult: No Initiate information on smoking cessation: No Relationship: Level: Independent Home Mobility Equipment: Cane Do you feel safe in your home environment?: Yes Suffered physical, verbal, emotional, or financial abuse?: No Exam Constitutional Obese somewhat ill-appearing woman presents to the emergency department speaking in one-word sentences. Obvious tachypnea, accessory muscle use on arrival. HENMT normocephalic Eyes PERRL Neck/C-Spine visual inspection normal Lymph no lymphadenopathy noted Chest inspection of chest normal and palpation of chest normal Respiratory Significant diminished breath sounds bilateral lower lung wilkerson. Fine crackles appreciated left lower lung field. Cardiovascular Tachycardia Gastrointestinal abdomen normal to inspection, abdomen soft to palpation and nontender to palpation Back/Pelvis spine normal to inspection Extremities normal to inspection Neurology corrections nurse II-XII intact, no movement abnormality noted, no focal motor deficit noted and no sensory deficits noted Psychiatry mental status grossly normal Skin skin color normal Results Vitals Vitals: Oxygen O2 Source BIPAP EKG (time done) 0937: EKG releavant findings:: EKG personally interpreted by author of this note. Relevant findings are: Sinus rhythm with rate 97 bpm. Normal axis. Normal ME, QRS, QTc intervals. No ST segment elevations. Frequent premature ventricular and supraventricular complexes noted. Some nonspecific ST-T wave abnormalities noted in the inferior and lateral leads. Labs Labs: Microbiology 02/07/25 08:51 Blood Culture - Preliminary Blood - Right Hand NO GROWTH AFTER 2 DAYS 02/07/25 08:44 Blood Culture - Preliminary Blood - Left Arm NO GROWTH AFTER 2 DAYS Laboratory Tests 02/07/25 02/07/25 02/07/25 08:20 08:30 08:44 WBC 14.7 H RBC 4.50 Hgb 14.6 Hct 45.1 MCV 100.2 H MCH 32.4 H MCHC 32.4 RDW 14.7 Plt Count 240 MPV 10.3 Neut # (Auto) 11.0 H Lymph # (Auto) 1.6 [place] # (Auto) 1.2 H Eos # (Auto) 0.8 H Baso # (Auto) 0.1 Absolute Nucleated RBC 0.00 Nucleated RBC % 0.0 VBG pH 7.337 VBG pCO2 67.8 H VBG pO2 107.3 H VBG HCO3 36.7 H VBG Total CO2 38.8 H VBG O2 Saturation 98.0 H VBG Base Excess 10.7 H Sodium 144 Potassium 3.6 Chloride 102 Carbon Dioxide 36 H Anion Gap 6.0 BUN 17 Creatinine 1.0 Estimated GFR (MDRD) 53 L Glucose 101 POC Whole Bld Glucose 109 Lactic Acid 1.1 Calcium 10.5 H Magnesium 2.1 Total Bilirubin 0.4 AST 11 ALT 14 Alkaline Phosphatase 100 Troponin I High Sens 42.1 H* B-Natriuretic Peptide 762 H Total Protein 6.3 L Albumin 3.4 Globulin 2.9 Albumin/Globulin Ratio 1.2 Urine Color Urine Clarity Urine pH Ur Specific Dewitt Urine Protein Urine Glucose (UA) Urine Ketones Urine Occult Blood Urine Nitrite Urine Bilirubin Urine Urobilinogen Ur Leukocyte Esterase Urine RBC Urine WBC Ur Squamous Epith Cells Urine Bacteria Ur Microscopic Review Urine Culture Comments Nasal Adenovirus (PCR) NOT DETECTED Nasal B. parapertussis DNA (PCR) NOT DETECTED Nasal Coronavir 229E PCR NOT DETECTED Nasal Coronavir HKU1 PCR NOT DETECTED Nasal Coronavir NL63 PCR NOT DETECTED Nasal Coronavir OC43 PCR NOT DETECTED Nasal Enterovir/Rhinovir PCR NOT DETECTED Nasal Influenza B PCR NOT DETECTED Nasal Influenza A PCR NOT DETECTED Nasal Parainfluen 1 PCR NOT DETECTED Nasal Parainfluen 2 PCR NOT DETECTED Nasal Parainfluen 3 PCR NOT DETECTED Nasal Parainfluen 4 PCR NOT DETECTED Nasal RSV (PCR) NOT DETECTED Nasal B.pertussis DNA PCR NOT DETECTED Nasal C.pneumoniae (PCR) NOT DETECTED [place] Human Metapneumo PCR NOT DETECTED Nasal M.pneumoniae (PCR) NOT DETECTED Nasal SARS-CoV-2 (PCR) NOT DETECTED 02/07/25 02/07/25 09:34 10:43 WBC RBC Hgb Hct MCV MCH MCHC RDW Plt Count MPV Neut # (Auto) Lymph # (Auto) [place] # (Auto) Eos # (Auto) Baso # (Auto) Absolute Nucleated RBC Nucleated RBC % VBG pH VBG pCO2 VBG pO2 VBG HCO3 VBG Total CO2 VBG O2 Saturation VBG Base Excess Sodium Potassium Chloride Carbon Dioxide Anion Gap BUN Creatinine Estimated GFR (MDRD) Glucose POC Whole Bld Glucose Lactic Acid Calcium Magnesium Total Bilirubin AST ALT Alkaline Phosphatase Troponin I High Sens 48.0 H* B-Natriuretic Peptide Total Protein Albumin Globulin Albumin/Globulin Ratio Urine Color YELLOW Urine Clarity CLEAR Urine pH 6.5 Ur Specific Dewitt 1.020 Urine Protein 30 H Urine Glucose (UA) NEGATIVE Urine Ketones NEGATIVE Urine Occult Blood NEGATIVE Urine Nitrite NEGATIVE Urine Bilirubin NEGATIVE Urine Urobilinogen 0.2 (NORMAL) Ur Leukocyte Esterase NEGATIVE Urine RBC 0-5 Urine WBC 0-3 Ur Squamous Epith Cells MOD Squamous H Urine Bacteria Few Ur Microscopic Review INDICATED Urine Culture Comments NOT INDICATED Nasal Adenovirus (PCR) Nasal B. parapertussis DNA (PCR) Nasal Coronavir 229E PCR Nasal Coronavir HKU1 PCR Nasal Coronavir NL63 PCR Nasal Coronavir OC43 PCR Nasal Enterovir/Rhinovir PCR Nasal Influenza B PCR Nasal Influenza A PCR Nasal Parainfluen 1 PCR Nasal Parainfluen 2 PCR Nasal Parainfluen 3 PCR Nasal Parainfluen 4 PCR Nasal RSV (PCR) Nasal B.pertussis DNA PCR Nasal C.pneumoniae (PCR) Lamonte Human Metapneumo PCR Nasal M.pneumoniae (PCR) Nasal SARS-CoV-2 (PCR) PD Medical Decision Making ED course Complexity details: reviewed old records, reviewed results, re-evaluated patient, considered differential and d/w patient ED course: 79-year-old female presents with acute on chronic hypoxic respiratory failure. Baseline oxygen demand is 4 L. Arrives on nonrebreather with continuous DuoNeb ongoing. Received steroids prior to arrival. Arrives in respiratory distress with accessory muscle use, diminished breath sounds bilaterally, fine crackles left lower lung lobes per my examination. Started on BiPAP on arrival. Continued to DuoNeb. Chest x-ray demonstrates pleural effusion as well as some potential signs of infiltrate. Lab work positive for leukocytosis. She is tachycardic. Sepsis protocol initiated. Blood cultures obtained. Given 1 g Rocephin initially. Blood gas demonstrates likely chronic hypercapnic retention with an elevated bicarb but no acidosis. CT angiography positive for infiltrate as well as compressive atelectasis and effusion in the left lower lung lobe. Patient responds remarkably well to treatment here in the emergency department. She was briefly trialed off BiPAP however became significantly winded with physical activity, specifically tried to be at bedside and was placed back on BiPAP though her initial respiratory distress seems to have resolved at this time. Given findings on CT imaging antibiotic coverage was broadened to include azithromycin to cover for community-acquired pneumonia. Goals of care discussed with the patient after review of her POLST paperwork from home shows that it was incorrectly completed. She is DNR, DNI. Wishes for selective treatments but does not wish to be placed on life support, kept alive with artificial nutrition support and does not believe she would want emergent dialysis and/or surgery if she were not to place to make the decision for herself. She is discussed with the hospitalist service who graciously agrees to hospitalize for further evaluation and treatment. Critical Care Critical Care Provided: Yes Time(min): 31 Time Includes: Direct patient care, Review records, Reassess patient, Document care, Coordinate care, Medical consult and See progress note Data interpretation: Labs, Pulse ox, CXR and Cardiac output Discharge Plan Discharge Patient Disposition: 66 [facility] DC/Xfer Clinical Impression: COPD with acute exacerbation, Pleural effusion Respiratory failure Qualifiers: Chronicity: acute on chronic Respiratory failure complication: hypoxia Qualified Code(s): J96.21 - Acute and chronic respiratory failure with hypoxia Interventions: ED Admission Assessment Last Done: 02/07/25 12:15
[2025-02-07] MEDS ORDERED: ONDANSETRON 4 MG/2 ML VIAL IVP PRN (12:24)
[2025-02-07] MEDS ORDERED: ONDANSETRON ODT 4 MG TABLET TL PRN (12:24)
[2025-02-07] MEDS: FUROSEMIDE 40 MG/4 ML VIAL IVP SCH (13:22)
[2025-02-07] MEDS: methylPREDNISolone SUCCINATE 40 MG/ML VIAL IVP SCH (13:22)
[2025-02-07] MEDS: METOPROLOL SUCCINATE 50 MG TABLET PO ONE (13:22)
[2025-02-07] MEDS: IPRATROPIUM/ALBUTEROL 3 ML NEB INH SCH (14:58)
--- NOTE | 2025-02-07 16:46 | PHARMACY PROGRESS NOTE ---
Best Possible Medication History Admit Date and Time: 02/07/25 1147 Home Medications Medication Instructions Recorded Confirmed Type atorvastatin 80 mg tablet (Lipitor) 80 mg PO HS 04/18/13 02/07/25 History budesonide-formoterol HFA 160 2 puff inhalation DAILY 04/18/13 02/07/25 History mcg-4.5 mcg/actuation aerosol inhaler (Symbicort) ezetimibe 10 mg tablet 10 meq PO DAILY 04/18/13 02/07/25 History furosemide 40 mg tablet (Lasix) 40 mg PO DAILY 04/18/13 02/07/25 History ibuprofen 800 mg tablet 800 mg PO Q8H PRN PAIN &/OR FEVER 04/18/13 02/07/25 History isosorbide mononitrate 30 mg 30 mg PO BID 04/18/13 02/07/25 History tablet,extended release 24 hr lorazepam 0.5 mg tablet 0.5 mg PO BID 04/05/14 02/07/25 History albuterol sulfate 2.5 mg/3 mL 2.5 mg inhalation PRN PRN As 04/19/18 02/07/25 History (0.083 %) solution for nebulization Needed Per Provider Orders Pgx Daily 1 tab PO DAILY 06/03/20 02/07/25 History ipratropium 0.5 mg-albuterol 3 mg 1 applic PO Q4HR 06/03/20 02/07/25 History (2.5 mg base)/3 mL nebulization soln nitroglycerin 0.4 mg sublingual 0.4 mg sublingual PRN Angina 06/03/20 02/07/25 History tablet aspirin 81 mg tablet,delayed 81 mg PO DAILY 02/07/25 02/07/25 History release (Adult Aspirin Regimen) benzonatate 200 mg capsule 200 mg PO BID PRN cough 02/07/25 02/07/25 History calcium 315 mg (as 1 tab PO BID 02/07/25 02/07/25 History citrate)-vitamin D3 5 mcg (200 unit) tablet (Calcium Citrate + D) chromium picolinate 500 mcg capsule 500 mcg PO TID 02/07/25 02/07/25 History clonidine HCl 0.1 mg tablet 0.1 mg PO BID 02/07/25 02/07/25 History clopidogrel 75 mg tablet 75 mg PO DAILY 02/07/25 02/07/25 History docusate sodium 100 mg tablet 100 mg PO BID 02/07/25 02/07/25 History escitalopram oxalate 5 mg tablet 5 mg PO DAILY 02/07/25 02/07/25 History insulin aspart U-100 100 unit/mL 1 sliding scale dose subcut AC 02/07/25 02/07/25 History (3 mL) subcutaneous pen (Novolog FlexPen U-100 Insulin aspart) insulin glargine 100 unit/mL (3 35 unit subcut QPM 02/07/25 02/07/25 History mL) subcutaneous pen (Lantus Solostar U-100 Insulin) levalbuterol HCl 0.63 mg/3 mL 0.63 mg inhalation Q4H PRN 02/07/25 02/07/25 History solution for nebulization shortness of breath or wheezing loratadine 10 mg tablet 10 mg PO DAILY 02/07/25 02/07/25 History losartan 50 mg tablet 50 mg PO DAILY 02/07/25 02/07/25 History metoprolol succinate 50 mg 50 mg PO BID 02/07/25 02/07/25 History tablet,extended release 24 hr montelukast 5 mg chewable tablet 5 mg PO DAILY PM 02/07/25 02/07/25 History omeprazole 40 mg capsule,delayed 40 mg PO BIDAC 02/07/25 02/07/25 History release valacyclovir 500 mg tablet 500 mg PO DAILY 02/07/25 02/07/25 History Processed by: Pharmacy (Medication Reconciliation completed by Cat Driver[employer]) Medications reviewed in ED?: No Medication History completed: Yes Patient Interview: Completed (was able to help with some of the medications) Secondary Source(s): Other family member (Patient's son) and Insurance records [facility] Statement: As the person ultimately responsible for medication therapy, providers are able to order a medication from an existing home medication list in [facility] via the "Reconcile Routine" prior to Confirmation of that medication by operations support representative. Such practice is discouraged except when the physician, in their clinical judgment, deems that a medical need exists for a medication without regard to previous use.
[2025-02-07] MEDS: INSULIN LISPRO 300 UNIT/3 ML PEN SUBQ SCH (17:31)
[2025-02-07] MEDS: SODIUM CHLORIDE FLUSH 0.9% 10 ML SYRINGE IVP SCH (17:31)
[2025-02-07] MEDS: IBUPROFEN 400 MG TABLET PO PRN (19:25)
[2025-02-07] MEDS: cloNIDine 0.1 MG TABLET PO SCH (20:59)
[2025-02-07] MEDS: ATORVASTATIN 40 MG TABLET PO SCH (20:59)
[2025-02-07] MEDS: ISOSORBIDE MONONITRATE ER 30 MG TABLET PO SCH (20:59)
[2025-02-07] MEDS: METOPROLOL SUCCINATE 50 MG TABLET PO SCH (20:59)
[2025-02-07] MEDS: FAMOTIDINE 20 MG TABLET PO SCH (20:59)
[2025-02-07] MEDS: DOCUSATE SODIUM 100 MG CAPSULE PO SCH (21:01)
[2025-02-07] MEDS: INSULIN GLARGINE-YFGN 300 UNIT/3 ML PEN SUBQ SCH (21:04)
[2025-02-07] MEDS: ACETAMINOPHEN 325 MG TABLET PO PRN (21:05)
[2025-02-07] MEDS ORDERED: CHROMIUM PICOLINATE 500 MCG PO SCH (22:00)
[2025-02-07] MEDS: MELATONIN 3 MG TABLET PO SCH (22:01)
[2025-02-08 04:41] LABS: BASOPHILS % (AUTO) 0.1 %; HGB - HEMOGLOBIN 12.2 g/dL (12.0-16.0); LYMPHOCYTES # (AUTO) 0.3 10^3/uL (1.5-3.5); LYMPHOCYTES % (AUTO) 2.4 %; MEAN CORPUSCULAR HEMOGLOBIN 32.4 pg (27.0-31.0); MEAN CORPUSCULAR HGB CONC 32.1 g/dL (32.0-36.0); MEAN CORPUSCULAR VOLUME 100.8 fL (81.0-99.0); MEAN PLATELET VOLUME 10.9 fL (7.9-10.8); MONOCYTES # (AUTO) 0.5 10^3/uL (0.0-1.0); MONOCYTES % (AUTO) 3.8 %; NEUTROPHILS # (AUTO) 13.1 10^3/uL (1.5-6.6); NEUTROPHILS % (AUTO) 93.3 %; PLT - PLATELET COUNT 204 10^3/uL (130-450); RED BLOOD COUNT 3.77 10^6/uL (4.20-5.40)
[2025-02-08 04:46] LABS: CALCIUM, IONIZED 1.38 mmol/L (1.09-1.30); VBG PH 7.446 (7.31-7.41)
[2025-02-08 04:53] LABS: CALCIUM 10.1 mg/dL (8.5-10.3); CREATININE 1.4 mg/dL (0.6-1.3); MAGNESIUM 2.2 mg/dL (1.7-2.3); POTASSIUM 3.8 mmol/L (3.5-4.5)
[2025-02-08] MEDS: PANTOPRAZOLE 40 MG TABLET PO SCH (06:13)
[2025-02-08] MEDS ORDERED: NON FORMULARY MED (Omeprazole 40 mg capsule,delayed release(DR/EC)) PO SCH (07:00)
[2025-02-08] MEDS: cefTRIAXone 1 GM VIAL IVP SCH (08:07)
[2025-02-08] MEDS: ENOXAPARIN 40 MG/0.4 ML SYRINGE SUBQ SCH (08:08)
[2025-02-08] MEDS: LOSARTAN 50 MG TABLET PO SCH (08:09)
[2025-02-08] MEDS: predniSONE 20 MG TABLET PO SCH (08:09)
[2025-02-08] MEDS: valACYclovir 500 MG TABLET PO SCH (08:09)
[2025-02-08] MEDS: ESCITALOPRAM 10 MG TABLET PO SCH (08:10)
[2025-02-08] MEDS: AZITHROMYCIN 250 MG TABLET PO SCH (08:10)
[2025-02-08] MEDS: CLOPIDOGREL 75 MG TABLET PO SCH (08:10)
[2025-02-08] MEDS: ASPIRIN EC 81 MG TABLET PO SCH (08:10)
[2025-02-08] MEDS: EZETIMIBE 10 MG PO SCH (08:11)
[2025-02-08] MEDS: NICOTINE 14 MG PATCH TOP SCH (08:23)
[2025-02-08] MEDS ORDERED: INSULIN LISPRO 300 UNIT/3 ML PEN SUBQ SCH (12:00)
[2025-02-08] MEDS: INSULIN GLARGINE-YFGN 300 UNIT/3 ML PEN SUBQ ONE (12:15)
[2025-02-08] MEDS: INSULIN LISPRO 300 UNIT/3 ML PEN SUBQ ONE (12:15)
[2025-02-08] MEDS: INSULIN LISPRO 300 UNIT/3 ML PEN SUBQ SCH (12:15)
--- NOTE | 2025-02-08 12:23 | PT Plan of Care ---
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 Admitted to hospital with COPD exacerbation, now on 2.5L O2 and sats >90% at rest. Per chart review pt uses 3-4L O2 at home, cane for mobility and lives in multistory home with son and dtr. States she is Scotty with ambulation and ADLs at home. Upon PT eval, pt transfers and completes short distance amb with SPC and SBA to CGA. Sats WNL during activity and pt denies SOA however assumes tripod position in seated and spends several minutes recovery breathing after activity. Pt presenting at or near her functional baseline and does not have acute PT needs. Eval only, no goals established and PT rec dc home with increased CG support as needed. PLAN Frequency: Evaluation only, no further P.T. DISCHARGE RECOMMENDATIONS Support/Services Needed: With assist DC Equipment Recommended: Cane Transport Needs at Discharge: Personal vehicle
--- NOTE | 2025-02-08 12:34 | OT Plan of Care ---
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 In the emergency room, when patient presented, she was saturating 100%, but she came in on BIPAP. She is normotensive with blood pressure 120/59, heart rate was 102, respiratory rate was initially 40, and improved to 20. Given a dose of IV Solu-Medrol, received breathing treatments , as well as Rocephin and azithromycin, and was admitted for acute hypoxic respiratory failure. CTA done on admission showed no pulmonary embolism, but did show a moderate left-sided pleural effusion with some compressive atelectasis in the left lower lobe. Weaned to NC . Cleared for therapy evaluation. Met on2.5L NC -Spo2 ~86%-92% with mobility. HR stable. A&Ox4, follows all commands appropriately. Performed supine to sit, sit to stand, and ambulation 10ft using SPC MOD I MOD I ADLs with increased time and PLB. Pt is at baseline level of function and will benefit from cont OOB with nursing and ADLs prn. No further skilled OT needed at acute level of care. Rec d/c home with family assist. Plan Treatment Frequency Evaluation only, no further O.T. -Discharge Recommendations Discharge Location Previous Living Situation Transport Needs at Discharge Personal vehicle
--- NOTE | 2025-02-08 13:09 | PROVIDER PROGRESS NOTE ---
Subjective Subjective Subjective: Today, patient feels better. She still feels short of breath when she is up and doing activities. At baseline, she is mostly bedbound, and ambulates short distances. She states her wheezing has improved, and her work of breathing is getting better. She did require the BiPAP overnight, but has been doing well without it during the day today. Current Medications Current Medications Current Medications: Current Medications Generic Name Dose Route Start Last Admin Trade Name Freq PRN Reason Stop Dose Admin Acetaminophen 650 mg 02/07/25 12:24 02/07/25 21:05 Acetaminophen 325 Mg Tablet PO 650 mg Q4HR PRN Administration Pain 1 to 4, or Fever Albuterol/Ipratropium 3 ml 02/07/25 15:00 02/08/25 10:36 Ipratropium/Albuterol 3 Ml Neb INH 3 ml RTQID ANGIE Administration Albuterol/Ipratropium 3 ml 02/07/25 17:59 Ipratropium/Albuterol 3 Ml Neb INH Q4HR PRN Wheezing Aspirin 81 mg 02/08/25 09:00 02/08/25 08:10 Aspirin Ec 81 Mg Tablet PO 81 mg DAILY ANGIE Administration Atorvastatin Calcium 80 mg 02/07/25 21:00 02/07/25 20:59 Atorvastatin 40 Mg Tablet PO 80 mg HS ANGIE Administration Azithromycin 500 mg 02/08/25 09:00 02/08/25 08:10 Azithromycin 250 Mg Tablet PO 500 mg DAILY ANGIE Administration Ceftriaxone Sodium 1 gm 02/08/25 09:00 02/08/25 08:07 Ceftriaxone 1 Gm Vial IVP 1 gm DAILY ANGIE Administration Clonidine HCl 0.1 mg 02/07/25 21:00 02/08/25 08:09 Clonidine 0.1 Mg Tablet PO 0.1 mg BID ANGIE Administration Clopidogrel Bisulfate 75 mg 02/08/25 09:00 02/08/25 08:10 Clopidogrel 75 Mg Tablet PO 75 mg DAILY ANGIE Administration Docusate Sodium 100 mg 02/07/25 21:00 02/08/25 08:09 Docusate Sodium 100 Mg Capsule PO 100 mg BID ANGIE Administration Enoxaparin Sodium 40 mg 02/08/25 09:00 02/08/25 08:08 Enoxaparin 40 Mg/0.4 Ml Syringe SUBQ 40 mg DAILY ANGIE Administration Escitalopram Oxalate 5 mg 02/08/25 09:00 02/08/25 08:10 Escitalopram 10 Mg Tablet PO 5 mg DAILY ANGIE Administration Famotidine 20 mg 02/07/25 21:00 02/08/25 08:09 Famotidine 20 Mg Tablet PO 20 mg BID ANGIE Administration Furosemide 40 mg 02/07/25 13:00 02/08/25 08:09 Furosemide 40 Mg/4 Ml Vial IVP 40 mg DAILY ANGIE Administration Ibuprofen 400 mg 02/07/25 14:10 02/08/25 06:16 Ibuprofen 400 Mg Tablet PO 400 mg Q6HR PRN Administration Moderate Pain (Level 4-6) Insulin Glargine-yfgn 15 unit 02/07/25 21:00 02/07/25 21:04 Insulin Glargine-Yfgn 300 Unit/3 Ml Pen SUBQ 15 unit QPM ANGIE Administration Insulin Human Lispro 2 - 10 unit 02/08/25 12:00 02/08/25 12:15 Insulin Lispro 300 Unit/3 Ml Pen SUBQ 10 unit 0800,1200,1700,2100 ANGIE Administration Protocol Isosorbide Mononitrate 30 mg 02/07/25 21:00 02/08/25 08:09 Isosorbide Mononitrate Er 30 Mg Tablet PO 30 mg BID ANGIE Administration Losartan Potassium 50 mg 02/08/25 09:00 02/08/25 08:09 Losartan 50 Mg Tablet PO 50 mg DAILY ANGIE Administration Melatonin 6 mg 02/07/25 21:00 02/07/25 22:01 Melatonin 3 Mg Tablet PO 6 mg QPM ANGIE Administration Metoprolol Succinate 50 mg 02/07/25 21:00 02/08/25 08:10 Metoprolol Succinate 50 Mg Tablet PO 50 mg BID ANGIE Administration Nicotine 1 patch 02/08/25 09:00 02/08/25 08:23 Nicotine 14 Mg Patch TOP 1 patch DAILY ANGIE Administration Ondansetron HCl 4 mg 02/07/25 12:24 Ondansetron 4 Mg/2 Ml Vial IVP Q6HR PRN Nausea / Vomiting Ondansetron HCl 4 mg 02/07/25 12:24 Ondansetron Odt 4 Mg Tablet TL Q6HR PRN Nausea / Vomiting Pantoprazole Sodium 40 mg 02/08/25 07:00 02/08/25 06:13 Pantoprazole 40 Mg Tablet PO 40 mg BIDAC ANGIE Administration Ezetimibe 10 Mg 1 each 02/08/25 09:00 02/08/25 08:11 Tablet PO Not Given DAILY ANGIE Prednisone 40 mg 02/08/25 08:00 02/08/25 08:09 Prednisone 20 Mg Tablet PO 40 mg DAILYWM ANGIE Administration Sodium Chloride 10 ml 02/07/25 17:00 02/08/25 08:11 Sodium Chloride Flush 0.9% 10 Ml Syringe IVP 10 ml 0100,0900,1700 ANGIE Administration Sodium Chloride 10 ml 02/07/25 12:24 Sodium Chloride Flush 0.9% 10 Ml Syringe IVP PRN PRN NEEDED PER PROVIDER ORDERS Valacyclovir HCl 500 mg 02/08/25 09:00 02/08/25 08:09 Valacyclovir 500 Mg Tablet PO 500 mg DAILY ANGIE Administration Objective Vital Signs/Intake & Output Reviewed Vital Signs: Yes Vital Signs: Vital Signs x48h Temp Pulse Pulse Resp BP Pulse Ox O2 Flow Rate 02/08/25 12:00 98.6 F 88 21 106/63 96 2.5 02/08/25 11:00 80 21 133/62 H 95 2.5 02/08/25 10:54 3 02/08/25 10:00 77 24 156/83 H 96 2.5 02/08/25 09:00 74 20 146/59 H 92 3 02/08/25 08:49 3 02/08/25 08:00 98.2 F 74 21 142/64 H 92 2.5 02/08/25 07:36 2.5 02/08/25 07:35 76 24 02/08/25 07:33 2.5 02/08/25 07:00 61 18 136/62 H 95 02/08/25 06:25 3 02/08/25 06:02 78 3 02/08/25 06:00 98.2 F 67 16 114/57 L 95 Intake & Output: Intake & Output 02/05/25 02/06/25 02/07/25 02/08/25 23:59 23:59 23:59 23:59 Intake Total 850 / 850 460 / 460 Output Total 1000 / 1000 750 / 750 Balance -150 / -150 -290 / -290 Weight (kg) 81.5 kg 83.5 kg Objective General Appearance: positive No acute distress and Alert; negative Anxious Eyes Bilateral: positive Normal inspection, PERRL and EOMI ENT: positive ENT inspection nml, Pharynx nml and No signs of dehydration Neck: positive Nml inspection, Thyroid nml and No JVD Respiratory: positive Chest non-tender, No respiratory distress, Breath sounds nml and Other (Patient with pursed lip breathing, no accessory muscle use. Wheezing is improved. She has bibasilar crackles noted.); negative Wheezes, Rales or Rhonchi Cardiovascular: positive Regular rate & rhythm, No murmur and No gallop Abdomen: positive Non-tender, No organomegaly, Nml bowel sounds and No distention Back: positive Nml inspection; negative CVA tenderness (R) or CVA tenderness (L) Skin: positive Color nml, No rash, Warm and Dry Extremities: positive Non-tender, Full ROM and Pedal edema (trace) Neurologic/Psychiatric: positive Oriented x3, Motor nml, Sensation nml and Mood/affect nml Lab Results 02/08/25 04:31 02/08/25 04:31 Other Labs: Lab Results x24hrs 02/08/25 02/08/25 02/07/25 Range/Units 07:33 04:31 20:16 WBC 14.0 H (4.8-10.8) x10^3/uL RBC 3.77 L (4.20-5.40) 10^6/uL Hgb 12.2 (12.0-16.0) g/dL Hct 38.0 (37.0-47.0) % MCV 100.8 H (81.0-99.0) fL MCH 32.4 H (27.0-31.0) pg MCHC 32.1 (32.0-36.0) g/dL RDW 15.0 (12.0-15.0) % Plt Count 204 (130-450) 10^3/uL MPV 10.9 H (7.9-10.8) fL Neut # (Auto) 13.1 H (1.5-6.6) 10^3/uL Lymph # (Auto) 0.3 L (1.5-3.5) 10^3/uL [place] # (Auto) 0.5 (0.0-1.0) 10^3/uL Eos # (Auto) 0.0 (0.0-0.7) 10^3/uL Baso # (Auto) 0.0 (0.0-0.1) 10^3/uL Absolute Nucleated RBC 0.00 x10^3/uL Nucleated RBC % 0.0 /100WBC VBG pH 7.446 H (7.31-7.41) Ionized Calcium 1.38 H (1.09-1.30) mmol/L Sodium 138 (135-145) mmol/L Potassium 3.8 (3.5-4.5) mmol/L Chloride 98 L (101-111) mmol/L Carbon Dioxide 34 H (21-32) mmol/L Anion Gap 6.0 (6-13) BUN 39 H (6-20) mg/dL Creatinine 1.4 H (0.6-1.3) mg/dL Estimated GFR (MDRD) 36 L (>89) Glucose 297 H (74-104) mg/dL POC Whole Bld Glucose 259 312 (70-100) mg/dL Calcium 10.1 (8.5-10.3) mg/dL Phosphorus 3.6 (2.5-5.0) mg/dL Magnesium 2.2 (1.7-2.3) mg/dL Nasal Screen MRSA (PCR) (NEGATIVE) 02/07/25 02/07/25 Range/Units 17:19 12:33 WBC (4.8-10.8) x10^3/uL RBC (4.20-5.40) 10^6/uL Hgb (12.0-16.0) g/dL Hct (37.0-47.0) % MCV (81.0-99.0) fL MCH (27.0-31.0) pg MCHC (32.0-36.0) g/dL RDW (12.0-15.0) % Plt Count (130-450) 10^3/uL MPV (7.9-10.8) fL Neut # (Auto) (1.5-6.6) 10^3/uL Lymph # (Auto) (1.5-3.5) 10^3/uL [place] # (Auto) (0.0-1.0) 10^3/uL Eos # (Auto) (0.0-0.7) 10^3/uL Baso # (Auto) (0.0-0.1) 10^3/uL Absolute Nucleated RBC x10^3/uL Nucleated RBC % /100WBC VBG pH (7.31-7.41) Ionized Calcium (1.09-1.30) mmol/L Sodium (135-145) mmol/L Potassium (3.5-4.5) mmol/L Chloride (101-111) mmol/L Carbon Dioxide (21-32) mmol/L Anion Gap (6-13) BUN (6-20) mg/dL Creatinine (0.6-1.3) mg/dL Estimated GFR (MDRD) (>89) Glucose (74-104) mg/dL POC Whole Bld Glucose 292 (70-100) mg/dL Calcium (8.5-10.3) mg/dL Phosphorus (2.5-5.0) mg/dL Magnesium (1.7-2.3) mg/dL Nasal Screen MRSA (PCR) NEGATIVE (NEGATIVE) Diagnostic Imaging Diagnostic Imaging Results: positive Final report reviewed Assessment/Plan Problem List (1) Acute hypoxic respiratory failure: Impression: Patient alternating between BiPAP for work of breathing and her 3 L of home oxygen. CTA does show moderate pleural effusion. Will continue with IV diuresis, Lasix 40 mg daily. Patient also has some mild expiratory wheezing, much improved today. Switch IV Solu-Medrol 40 mg every 6 hours, to oral prednisone. Continue Rocephin and azithromycin for possible superimposed bacterial pneumonia in setting of leukocytosis, chills at home, productive cough. (2) Pleural effusion: Impression: Continue diuresis as stated above. If unsuccessful, will consider thoracentesis for symptomatic relief. (3) COPD with acute exacerbation: Impression: Patient currently actively smoking. Remains on 3 L of oxygen at home. Is a DO NOT RESUSCITATE, DO NOT INTUBATE. Extensive code discussion, as well as goals of care discussion happened. (4) CAD (coronary artery disease): Impression: Patient states that she has a history of a CABG in the past. Continue aspirin, Plavix, statin. Qualifiers: Associated angina: without angina Coronary Disease-Associated Artery/Lesion type: unspecified vessel or lesion type [place] vs. transplanted heart: [place] heart Qualified Code(s): I25.10 - Atherosclerotic heart disease of [place] coronary artery without angina pectoris (5) Insulin dependent diabetes mellitus: Impression: Patient initially said she took 35 units of insulin at home, but then she was waking up to hypoglycemic episodes. We started her on 20 units here, as well as high-dose sliding scale. She has been hyperglycemic. Will increase to 35 units at night again tonight. Have given another dose of 10 units long-acting during the day today.
[2025-02-08] MEDS: INSULIN GLARGINE-YFGN 300 UNIT/3 ML PEN SUBQ SCH (20:47)
[2025-02-09 04:52] LABS: HCT - HEMATOCRIT 37.6 % (37.0-47.0); HGB - HEMOGLOBIN 12.3 g/dL (12.0-16.0); MEAN CORPUSCULAR HEMOGLOBIN 32.5 pg (27.0-31.0); MEAN CORPUSCULAR HGB CONC 32.7 g/dL (32.0-36.0); MEAN CORPUSCULAR VOLUME 99.2 fL (81.0-99.0); MEAN PLATELET VOLUME 10.8 fL (7.9-10.8); RED BLOOD COUNT 3.79 10^6/uL (4.20-5.40); WHITE BLOOD COUNT 17.7 x10^3/uL (4.8-10.8)
[2025-02-09 05:03] LABS: VBG PH 7.456 (7.31-7.41)
[2025-02-09 05:09] LABS: CALCIUM 10.7 mg/dL (8.5-10.3); CREATININE 1.2 mg/dL (0.6-1.3); MAGNESIUM 2.3 mg/dL (1.7-2.3); PHOSPHORUS 3.1 mg/dL (2.5-5.0); POTASSIUM 3.2 mmol/L (3.5-4.5)
[2025-02-09] MEDS: POTASSIUM CHLORIDE 20 MEQ TABLET PO SCH ×2 (06:25→08:15)
[2025-02-09] MEDS: HYDROcod/ACETAM 5/325 MG TABLET PO PRN (11:27)
--- NOTE | 2025-02-09 12:14 | PROVIDER PROGRESS NOTE ---
Subjective Subjective Subjective: Patient states that her work of breathing has increased once again. We had switched her to oral prednisone yesterday, and I have switched her back to IV Solu-Medrol. Overnight, she required BiPAP use, and is now on nasal cannula, but is getting more more tachypneic. We had a long discussion regarding her goals of carethis is documented in the separate advance care planning note. She is interested in hospice. I have reached out to the hospice team for an informational. Current Medications Current Medications Current Medications: Current Medications Generic Name Dose Route Start Last Admin Trade Name Freq PRN Reason Stop Dose Admin Acetaminophen 650 mg 02/07/25 12:24 02/07/25 21:05 Acetaminophen 325 Mg Tablet PO 650 mg Q4HR PRN Administration Pain 1 to 4, or Fever Hydrocodone Bitart/Acetaminophen 1 tab 02/09/25 10:23 02/09/25 11:27 Hydrocod/Acetam 5/325 Mg Tablet PO 1 tab Q4HR PRN Administration Moderate Pain (Level 4-6) Albuterol/Ipratropium 3 ml 02/07/25 15:00 02/09/25 11:02 Ipratropium/Albuterol 3 Ml Neb INH 3 ml RTQID ANGIE Administration Albuterol/Ipratropium 3 ml 02/07/25 17:59 Ipratropium/Albuterol 3 Ml Neb INH Q4HR PRN Wheezing Aspirin 81 mg 02/08/25 09:00 02/09/25 08:15 Aspirin Ec 81 Mg Tablet PO 81 mg DAILY ANGIE Administration Atorvastatin Calcium 80 mg 02/07/25 21:00 02/08/25 20:42 Atorvastatin 40 Mg Tablet PO 80 mg HS ANGIE Administration Azithromycin 500 mg 02/08/25 09:00 02/09/25 08:16 Azithromycin 250 Mg Tablet PO 500 mg DAILY ANGIE Administration Ceftriaxone Sodium 1 gm 02/08/25 09:00 02/09/25 08:14 Ceftriaxone 1 Gm Vial IVP 1 gm DAILY ANGIE Administration Clonidine HCl 0.1 mg 02/07/25 21:00 02/09/25 08:16 Clonidine 0.1 Mg Tablet PO 0.1 mg BID ANGIE Administration Clopidogrel Bisulfate 75 mg 02/08/25 09:00 02/09/25 08:15 Clopidogrel 75 Mg Tablet PO 75 mg DAILY ANGIE Administration Docusate Sodium 100 mg 02/07/25 21:00 02/09/25 08:16 Docusate Sodium 100 Mg Capsule PO 100 mg BID ANGIE Administration Enoxaparin Sodium 40 mg 02/08/25 09:00 02/09/25 08:15 Enoxaparin 40 Mg/0.4 Ml Syringe SUBQ 40 mg DAILY ANGIE Administration Escitalopram Oxalate 5 mg 02/08/25 09:00 02/09/25 08:16 Escitalopram 10 Mg Tablet PO 5 mg DAILY ANGIE Administration Famotidine 20 mg 02/07/25 21:00 02/09/25 08:30 Famotidine 20 Mg Tablet PO 20 mg BID ANGIE Administration Furosemide 40 mg 02/09/25 21:00 Furosemide 40 Mg/4 Ml Vial IVP BID ANGIE Ibuprofen 400 mg 02/07/25 14:10 02/08/25 21:59 Ibuprofen 400 Mg Tablet PO 400 mg Q6HR PRN Administration Moderate Pain (Level 4-6) Insulin Glargine-yfgn 25 unit 02/08/25 21:00 02/08/25 20:47 Insulin Glargine-Yfgn 300 Unit/3 Ml Pen SUBQ 25 unit QPM ANGIE Administration Insulin Human Lispro 2 - 10 unit 02/08/25 12:00 02/09/25 11:27 Insulin Lispro 300 Unit/3 Ml Pen SUBQ 2 unit 0800,1200,1700,2100 ANGIE Administration Protocol Isosorbide Mononitrate 30 mg 02/07/25 21:00 02/09/25 08:15 Isosorbide Mononitrate Er 30 Mg Tablet PO 30 mg BID ANGIE Administration Losartan Potassium 50 mg 02/08/25 09:00 02/09/25 08:16 Losartan 50 Mg Tablet PO 50 mg DAILY ANGIE Administration Melatonin 6 mg 02/07/25 21:00 02/08/25 21:58 Melatonin 3 Mg Tablet PO 6 mg QPM ANGIE Administration Metoprolol Succinate 50 mg 02/07/25 21:00 02/09/25 08:16 Metoprolol Succinate 50 Mg Tablet PO 50 mg BID ANGIE Administration Nicotine 1 patch 02/08/25 09:00 02/09/25 08:15 Nicotine 14 Mg Patch TOP 1 patch DAILY ANGIE Administration Ondansetron HCl 4 mg 02/07/25 12:24 Ondansetron 4 Mg/2 Ml Vial IVP Q6HR PRN Nausea / Vomiting Ondansetron HCl 4 mg 02/07/25 12:24 Ondansetron Odt 4 Mg Tablet TL Q6HR PRN Nausea / Vomiting Pantoprazole Sodium 40 mg 02/08/25 07:00 02/09/25 06:25 Pantoprazole 40 Mg Tablet PO 40 mg BIDAC ANGIE Administration Ezetimibe 10 Mg 1 each 02/08/25 09:00 02/09/25 08:17 Tablet PO Not Given DAILY ANGIE Potassium Chloride 20 meq 02/09/25 08:00 02/09/25 08:15 Potassium Chloride 20 Meq Tablet PO 20 meq DAILYWM ANGIE Administration Prednisone 40 mg 02/08/25 08:00 02/09/25 08:15 Prednisone 20 Mg Tablet PO 40 mg DAILYWM ANGIE Administration Sodium Chloride 10 ml 02/07/25 17:00 02/09/25 08:16 Sodium Chloride Flush 0.9% 10 Ml Syringe IVP 10 ml 0100,0900,1700 ANGIE Administration Sodium Chloride 10 ml 02/07/25 12:24 Sodium Chloride Flush 0.9% 10 Ml Syringe IVP PRN PRN NEEDED PER PROVIDER ORDERS Valacyclovir HCl 500 mg 02/08/25 09:00 02/09/25 08:16 Valacyclovir 500 Mg Tablet PO 500 mg DAILY ANGIE Administration Objective Vital Signs/Intake & Output Reviewed Vital Signs: Yes Vital Signs: Vital Signs x48h Temp Pulse Pulse Resp BP Pulse Ox O2 Flow Rate 02/09/25 12:00 208.4 F H 73 29 H 143/68 H 94 2.5 02/09/25 11:04 3 02/09/25 11:04 64 24 3 02/09/25 11:00 76 21 134/62 H 94 2.5 02/09/25 10:00 72 17 106/53 L 96 2.5 02/09/25 09:00 74 23 145/72 H 93 2.5 02/09/25 08:00 98.0 F 68 19 146/99 H 97 2.5 02/09/25 07:00 3 02/09/25 07:00 78 16 118/55 L 94 3 02/09/25 06:10 3 02/09/25 06:10 74 20 3 02/09/25 06:00 80 26 H 148/60 H 95 3 02/09/25 05:00 3 02/09/25 05:00 76 12 139/66 H 95 Intake & Output: Intake & Output 02/06/25 02/07/25 02/08/25 02/09/25 23:59 23:59 23:59 23:59 Intake Total 850 / 850 1250 / 1250 640 / 640 Output Total 1000 / 1000 1475 / 1475 1550 / 1550 Balance -150 / -150 -225 / -225 -910 / -910 Weight (kg) 81.5 kg 83.5 kg 80 kg Objective General Appearance: positive No acute distress and Alert; negative Anxious Eyes Bilateral: positive Normal inspection, PERRL and EOMI ENT: positive ENT inspection nml, Pharynx nml and No signs of dehydration Neck: positive Nml inspection, Thyroid nml and No JVD Respiratory: positive Chest non-tender, No respiratory distress, Breath sounds nml, Wheezes (mild wheezing noted in all lung [place] ) and Other (Patient with pursed lip breathing, no accessory muscle use. Also has bibasilar crackles noted.); negative Rales or Rhonchi Cardiovascular: positive Regular rate & rhythm, No murmur and No gallop Abdomen: positive Non-tender, No organomegaly, Nml bowel sounds and No distention Back: positive Nml inspection; negative CVA tenderness (R) or CVA tenderness (L) Skin: positive Color nml, No rash, Warm and Dry Extremities: positive Non-tender, Full ROM and Pedal edema (trace) Neurologic/Psychiatric: positive Oriented x3, Motor nml, Sensation nml and Mood/affect nml Lab Results 02/09/25 04:35 02/09/25 04:35 Other Labs: Lab Results x24hrs 02/09/25 02/09/25 02/09/25 Range/Units 11:22 07:36 04:35 WBC 17.7 H (4.8-10.8) x10^3/uL RBC 3.79 L (4.20-5.40) 10^6/uL Hgb 12.3 (12.0-16.0) g/dL Hct 37.6 (37.0-47.0) % MCV 99.2 H (81.0-99.0) fL MCH 32.5 H (27.0-31.0) pg MCHC 32.7 (32.0-36.0) g/dL RDW 15.0 (12.0-15.0) % Plt Count 217 (130-450) 10^3/uL MPV 10.8 (7.9-10.8) fL VBG pH 7.456 H (7.31-7.41) Ionized Calcium 1.40 H (1.09-1.30) mmol/L Sodium 141 (135-145) mmol/L Potassium 3.2 L (3.5-4.5) mmol/L Chloride 100 L (101-111) mmol/L Carbon Dioxide 36 H (21-32) mmol/L Anion Gap 5.0 L (6-13) BUN 39 H (6-20) mg/dL Creatinine 1.2 (0.6-1.3) mg/dL Estimated GFR (MDRD) 43 L (>89) Glucose 106 H (74-104) mg/dL POC Whole Bld Glucose 157 96 (70-100) mg/dL Calcium 10.7 H (8.5-10.3) mg/dL Phosphorus 3.1 (2.5-5.0) mg/dL Magnesium 2.3 (1.7-2.3) mg/dL 02/08/25 02/08/25 02/08/25 Range/Units 20:32 16:27 11:42 WBC (4.8-10.8) x10^3/uL RBC (4.20-5.40) 10^6/uL Hgb (12.0-16.0) g/dL Hct (37.0-47.0) % MCV (81.0-99.0) fL MCH (27.0-31.0) pg MCHC (32.0-36.0) g/dL RDW (12.0-15.0) % Plt Count (130-450) 10^3/uL MPV (7.9-10.8) fL VBG pH (7.31-7.41) Ionized Calcium (1.09-1.30) mmol/L Sodium (135-145) mmol/L Potassium (3.5-4.5) mmol/L Chloride (101-111) mmol/L Carbon Dioxide (21-32) mmol/L Anion Gap (6-13) BUN (6-20) mg/dL Creatinine (0.6-1.3) mg/dL Estimated GFR (MDRD) (>89) Glucose (74-104) mg/dL POC Whole Bld Glucose 241 161 376 (70-100) mg/dL Calcium (8.5-10.3) mg/dL Phosphorus (2.5-5.0) mg/dL Magnesium (1.7-2.3) mg/dL Diagnostic Imaging Diagnostic Imaging Results: positive Final report reviewed Assessment/Plan Problem List (1) Acute hypoxic respiratory failure: Impression: Patient has a longstanding history of COPD. She has a 75-year pack history. 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 For the past 20 years, her COPD has gotten worse. She is still actively smoking, although she has reduced it quite a bit. She requires 3 L of oxygen at baseline. Currently patient alternating between BiPAP for work of breathing and her 3 L of home oxygen while here; she does not have a BIPAP at home. CTA does show moderate pleural effusion. Will continue with IV diuresis, Lasix 40 mg daily. We spoke about possible thoracentesis if the diuresis does not work for symptomatic improvement, she would like to think about this. Patient has worsening wheezing today. Yesterday we switched her to prednisone. Today I will be switching her back to IV Solu-Medrol. Continue scheduled DuoNebs. Continue Rocephin for five days and azithromycin for three days possible superimposed bacterial pneumonia in setting of leukocytosis, chills at home, productive cough. Patient is also interested in hospice informational, and I have consulted them. Plan for hospice meeting today at 4 PM. (2) Pleural effusion: Impression: Continue diuresis as stated above. If unsuccessful, will consider thoracentesis for symptomatic relief. (3) COPD with acute exacerbation: Impression: Patient currently actively smoking. Remains on 3 L of oxygen at home. Is a DO NOT RESUSCITATE, DO NOT INTUBATE. Extensive code discussion, as well as goals of care discussion happened. She is interested in hospice informational, I have ordered this at this time. (4) CAD (coronary artery disease): Impression: Patient states that she has a history of a CABG in the past. Continue aspirin, Plavix, statin. On telemetry, patient does go into rhythms where she has multiple PACs. Concern for underlying atrial fibrillation as well, although we have not been able to pick it up clearly on EKG. Qualifiers: Associated angina: without angina Coronary Disease-Associated Artery/Lesion type: unspecified vessel or lesion type [place] vs. transplanted heart: [place] heart Qualified Code(s): I25.10 - Atherosclerotic heart disease of [place] coronary artery without angina pectoris (5) Insulin dependent diabetes mellitus: Impression: Patient initially said she took 35 units of insulin at home, but then she was waking up to hypoglycemic episodes. We started her on 20 units here, as well as high-dose sliding scale. She has been hyperglycemic. Will increase to 35 units at night again tonight.
--- NOTE | 2025-02-09 13:22 | ADVANCE CARE PLANNING NOTE ---
Advance Care Planning Planning Encounter Date: 02/09/25 Time: 01:00 Purpose: To discuss goals of care. Parties in Attendance: Patient. Decisional Capacity of the Patient: Full capacity. Diagnosis for Encounter (1) Acute hypoxic respiratory failure: Summary: Patient has a longstanding history of COPD. She has a 75-year pack history. 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 For the past 20 years, her COPD has gotten worse. She is still actively smoking, although she has reduced it quite a bit. She requires 3 L of oxygen at baseline. Currently patient alternating between BiPAP for work of breathing and her 3 L of home oxygen while here; she does not have a BIPAP at home. CTA does show moderate pleural effusion. Will continue with IV diuresis, Lasix 40 mg daily. We spoke about possible thoracentesis if the diuresis does not work for symptomatic improvement, she would like to think about this. Patient has worsening wheezing today. Yesterday we switched her to prednisone. Today I will be switching her back to IV Solu-Medrol. Continue scheduled DuoNebs. Continue Rocephin for five days and azithromycin for three days possible superimposed bacterial pneumonia in setting of leukocytosis, chills at home, productive cough. Patient is also interested in hospice informational, and I have consulted them. Plan for hospice meeting today at 4 PM. Encounter Subjective/Patient's Story: Patient is a 79-year-old female who was born in [place]. 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 She met her in [place] when she moved here. He was in the [place], and they traveled and lived in multiple places including [place] and [place]. They decided to settle in [facility] in the late 70s. He from lung cancer in 1997. They have 1 son together, who currently still lives with her. Her close friend had a daughter, but she passed, and now the daughter lives with her as well. Her son and this daughter both in their mid 40s. She has smoked heavily for 60 years. She is still currently smoking. Right now, she values being at home with her son and her friend's daughter and spending quality time with them. She is very frustrated with her continued admissions, as well as her progressive shortness of breath. Normally, now, she is only able to walk a few steps and then she gets winded. She is also frustrated at the amount of medications she has to take. Objective/Medical Story: Patient has longstanding history of COPD. She has an extensive smoking history of over 60 years. She states her COPD is gradually gotten worse. In the late , it sounds like she had to get what sounds like a partial lobectomy. Since then, things have gradually gotten worse. She requires 3 L of oxygen at rest and with activity. However, her work of breathing, and her subjective dyspnea has gotten to the point where it is impairing her quality of life significantly. This time, she has presented with worsening dyspnea. We are actively treating her for COPD exacerbation. She also has bilateral pleural effusions, which she states that she has had before. We are diuresing her. Her ECHO does reveal moderate tricuspid regurgitation. Goals of Care: Patient is hoping to have improvement in her dyspnea. She is hoping to be home with her loved ones. Plan: Patient is interested in hospice informational. They are coming today around 4 PM. Will discuss further after this meeting. Code Status: Do Not Attempt Resuscitation Time spent on advance care plannin
[2025-02-09] MEDS: methylPREDNISolone SUCCINATE 40 MG/ML VIAL IVP SCH (13:59)
[2025-02-09] MEDS ORDERED: MORPHINE IR 15 MG TABLET PO PRN (18:12)
[2025-02-09] MEDS: BUDESONIDE 0.5 MG/2 ML NEB INH SCH (20:07)
[2025-02-09] MEDS: FORMOTEROL FUMARATE NEB 20 MCG/2 ML INH SCH (20:07)
[2025-02-09] MEDS: IPRATROPIUM/ALBUTEROL 3 ML NEB INH PRN (20:07)
[2025-02-09] MEDS: MORPHINE SOL 10 MG/0.5 ML ORAL SYRINGE PO PRN (20:38)
[2025-02-09] MEDS ORDERED: LORazepam 2 MG/ML VIAL ONE (20:54)
[2025-02-09] MEDS: LORazepam 2 MG/ML VIAL IVP PRN (20:57)
[2025-02-09] MEDS: guaiFENesin 600 MG TABLET PO SCH (21:02)
[2025-02-09] MEDS: FUROSEMIDE 40 MG/4 ML VIAL IVP SCH (21:09)
[2025-02-10 04:36] LABS: HGB - HEMOGLOBIN 12.7 g/dL (12.0-16.0); MEAN CORPUSCULAR HEMOGLOBIN 32.5 pg (27.0-31.0); MEAN CORPUSCULAR HGB CONC 32.6 g/dL (32.0-36.0); MEAN CORPUSCULAR VOLUME 99.7 fL (81.0-99.0); MEAN PLATELET VOLUME 10.7 fL (7.9-10.8); RED BLOOD COUNT 3.91 10^6/uL (4.20-5.40); WHITE BLOOD COUNT 18.4 x10^3/uL (4.8-10.8)
[2025-02-10 04:39] LABS: CALCIUM, IONIZED 1.36 mmol/L (1.09-1.30); VBG PH 7.383 (7.31-7.41)
[2025-02-10 04:49] LABS: MAGNESIUM 2.3 mg/dL (1.7-2.3)
[2025-02-10 04:55] LABS: CALCIUM 10.7 mg/dL (8.5-10.3); CREATININE 1.2 mg/dL (0.6-1.3); POTASSIUM 4.2 mmol/L (3.5-4.5)
[2025-02-10] MEDS ORDERED: BUDESONIDE FORMOTEROL INH SCH (09:00)
--- NOTE | 2025-02-10 17:51 | PROVIDER PROGRESS NOTE ---
Progress Note Progress Note Progress Note: February 10, 2025 5:30 PM She was seen this morning. Miserable. Going on and off BiPAP. The misery comes from shortness of breath and the feeling that she is never catching her breath. She is decided that she would like to probably transition to hospice b ia only after she is medically stabilized right now. She would like to feel better before she goes home. Continues to state that this afternoon when I went by again to check on her again. In looking at her records, she still has the pleural effusion. We were hoping to address it with diuresis. While she does feel better with Lasix, she does not feel good enough to go home. She asks asked if we could please give her a Sr. Just using a bedside commode or bedpan completely wipe her out with dyspnea on exertion and leaves her gasping for air. Mild continuous cough. No phlegm. No fever or chills. No abdominal pain. No appetite. No urgency or frequency. Exam: Blood pressure is 122/82, pulse 77, respirations 20, 89% on 2-1/2 L nasal cannula. But it does not take very much for her to go back on 20 to 25% FiO2 with BiPAP. Fatigued appearing slightly tachypneic elderly female who looks exhausted. No agonal respiration. No use of accessory muscles. But at rest her respiratory rate varies between 20-24. Skin is warm and dry. No diaphoresis. Dull left lung sounds, less dullness on the right. Wheezing diffusely in the upper lobes on the right. Regular rate and rhythm with a systolic ejection murmur Abdomen is soft, nontender, hypoactive bowel sounds Neurologically alert and oriented to person, place, time and situation I reviewed her labs and she is hyperglycemic at 220. The rest of her glucose since this morning is 169, 197, 201. Calcium is high at 10.7. BUN is 38, and it was 17 on admission. So I am seeing the results of the Lasix. Creatinine is 1.12. That is improved. She was 1.4 on admission. Baseline creatinine is 1.0. White cell count continues to rise. On admission she was 14.7 and today she is 18.4. In June 2023 her white cell count very between 8.7-10.5. Hemoglobin is stable at 12.7. In June 2023 her hemoglobin was 17. MCV is 99.7. Platelets 236. Blood cultures are negative after 2 days Assessment/Plan Problem List (1) Acute hypoxic respiratory failure: Impression: Patient has a longstanding history of COPD. She has a 75-year pack history. 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 For the past 20 years, her COPD has gotten worse. She is still actively smoking, although she has reduced it quite a bit. She requires 3 L of oxygen at baseline. Currently patient continues to alternate between BiPAP for work of breathing and her 3 L of home oxygen while here; she does not have a BIPAP at home. This is in spite of the diuresis and the BiPAP support and steroids. CTA does show moderate pleural effusion. I will continue with IV diuresis, Lasix 40 mg daily. The previous hospitalist has spoken to her about a thoracentesis and I brought that back up again today. She says she is so miserable she is willing to do it. But today is Tuesday. I will order it for tomorrow. Patient has same wheezing today. This is in spite of being on IV prednisone and DuoNebs. She is already on Pulmicort and Perforomist. I will not be changing those medications today. Continue Rocephin for five days and azithromycin for three days possible superimposed bacterial pneumonia in setting of leukocytosis, chills at home, productive cough.Today is day 3 of azithromycin and I will stop that today. And she will continue for 2 more days of Rocephin. She did undergo a hospice informational visit yesterday. She is spoken to social work and is decided to go with would be hospice. Once we have medically stabilized her she will go home with hospice. I am hoping to alleviate her respiratory distress with a thoracentesis and then she can go home in the next day or 2. Sister respiratory distress is worsened with the activity of trying to get up to urinate, I have ordered a Sr catheter.She is currently on morphine and Ativan as needed. Those will continue as well. (2) Pleural effusion: Impression: So far diuresis has been unsuccessful in alleviating her shortness of breath. Thoracentesis ordered for tomorrow.Her INR is 1.0. Her INR was 1.0 in 2023. I will order 1 today. (3) COPD with acute exacerbation: Impression: Patient currently actively smoking. Remains on 3 L of oxygen at home. Is a DO NOT RESUSCITATE, DO NOT INTUBATE. Extensive code discussion, as well as goals of care discussion happened. She is interested in hospice informational, I have ordered this at this time. (4) CAD (coronary artery disease): Impression: Patient states that she has a history of a CABG in the past. Continue aspirin, Plavix, statin. On telemetry, patient does go into rhythms where she has multiple PACs. Concern for underlying atrial fibrillation as well, although we have not been able to pick it up clearly on EKG. Qualifiers: Associated angina: without angina Coronary Disease-Associated Artery/Lesion type: unspecified vessel or lesion type [place] vs. transplanted heart: [place] heart Qualified Code(s): I25.10 - Atherosclerotic heart disease of [place] coronary artery without angina pectoris (5) Insulin dependent diabetes mellitus: Impression: Patient initially said she took 35 units of insulin at home, but then she was waking up to hypoglycemic episodes. We started her on 20 units here, as well as high-dose sliding scale. She has been hyperglycemic. She was increased to 35 units at night. Glucose still up due to steroids. I will not change. Current Medications Current Medications Current Medications: Current Medications Generic Name Dose Route Start Last Admin Trade Name Freq PRN Reason Stop Dose Admin Acetaminophen 650 mg 02/07/25 12:24 02/07/25 21:05 Acetaminophen 325 Mg Tablet PO 650 mg Q4HR PRN Administration Pain 1 to 4, or Fever Hydrocodone Bitart/Acetaminophen 1 tab 02/09/25 10:23 02/10/25 10:59 Hydrocod/Acetam 5/325 Mg Tablet PO 1 tab Q4HR PRN Administration Moderate Pain (Level 4-6) Albuterol/Ipratropium 3 ml 02/07/25 15:00 02/10/25 15:29 Ipratropium/Albuterol 3 Ml Neb INH 3 ml RTQID ANGIE Administration Albuterol/Ipratropium 3 ml 02/07/25 17:59 02/09/25 20:09 Ipratropium/Albuterol 3 Ml Neb INH 3 ml Q4HR PRN Administration Wheezing Aspirin 81 mg 02/08/25 09:00 02/10/25 08:44 Aspirin Ec 81 Mg Tablet PO 81 mg DAILY ANGIE Administration Atorvastatin Calcium 80 mg 02/07/25 21:00 02/09/25 21:03 Atorvastatin 40 Mg Tablet PO 80 mg HS ANGIE Administration Azithromycin 500 mg 02/08/25 09:00 02/10/25 08:43 Azithromycin 250 Mg Tablet PO 500 mg DAILY ANGIE Administration Budesonide 0.5 mg 02/09/25 19:00 02/10/25 07:20 Budesonide 0.5 Mg/2 Ml Neb INH 0.5 mg RTBID ANGIE Administration Ceftriaxone Sodium 1 gm 02/08/25 09:00 02/10/25 08:41 Ceftriaxone 1 Gm Vial IVP 1 gm DAILY ANGIE Administration Clonidine HCl 0.1 mg 02/07/25 21:00 02/10/25 08:43 Clonidine 0.1 Mg Tablet PO 0.1 mg BID ANGIE Administration Clopidogrel Bisulfate 75 mg 02/08/25 09:00 02/10/25 08:43 Clopidogrel 75 Mg Tablet PO 75 mg DAILY ANGIE Administration Docusate Sodium 100 mg 02/07/25 21:00 02/10/25 08:44 Docusate Sodium 100 Mg Capsule PO 100 mg BID ANGIE Administration Enoxaparin Sodium 40 mg 02/08/25 09:00 02/10/25 08:43 Enoxaparin 40 Mg/0.4 Ml Syringe SUBQ 40 mg DAILY ANGIE Administration Escitalopram Oxalate 5 mg 02/08/25 09:00 02/10/25 08:41 Escitalopram 10 Mg Tablet PO 5 mg DAILY ANGIE Administration Famotidine 20 mg 02/07/25 21:00 02/10/25 08:44 Famotidine 20 Mg Tablet PO 20 mg BID ANGIE Administration Formoterol Fumarate 20 mcg 02/09/25 19:00 02/10/25 07:20 Formoterol Fumarate Neb 20 Mcg/2 Ml INH 20 mcg RTBID ANGIE Administration Furosemide 40 mg 02/09/25 21:00 02/10/25 08:45 Furosemide 40 Mg/4 Ml Vial IVP 40 mg BID ANGIE Administration Guaifenesin 600 mg 02/09/25 21:00 02/10/25 08:44 Guaifenesin 600 Mg Tablet PO 600 mg BID ANGIE Administration Ibuprofen 400 mg 02/07/25 14:10 02/10/25 10:59 Ibuprofen 400 Mg Tablet PO 400 mg Q6HR PRN Administration Moderate Pain (Level 4-6) Insulin Glargine-yfgn 25 unit 02/08/25 21:00 02/09/25 21:10 Insulin Glargine-Yfgn 300 Unit/3 Ml Pen SUBQ 25 unit QPM ANGIE Administration Insulin Human Lispro 2 - 10 unit 02/08/25 12:00 02/10/25 16:50 Insulin Lispro 300 Unit/3 Ml Pen SUBQ 4 unit 0800,1200,1700,2100 ANGIE Administration Protocol Isosorbide Mononitrate 30 mg 02/07/25 21:00 02/10/25 08:44 Isosorbide Mononitrate Er 30 Mg Tablet PO 30 mg BID ANGIE Administration Lorazepam 0.5 mg 02/09/25 20:42 02/09/25 20:57 Lorazepam 2 Mg/Ml Vial IVP 0.5 mg Q2H PRN Administration Anxiety Losartan Potassium 50 mg 02/08/25 09:00 02/10/25 08:44 Losartan 50 Mg Tablet PO 50 mg DAILY ANGIE Administration Melatonin 6 mg 02/07/25 21:00 02/09/25 22:22 Melatonin 3 Mg Tablet PO 6 mg QPM ANGIE Administration Methylprednisolone 40 mg 02/09/25 14:00 02/10/25 13:23 Methylprednisolone Succinate 40 Mg/Ml Vial IVP 40 mg TID ANGIE Administration Metoprolol Succinate 50 mg 02/07/25 21:00 02/10/25 08:44 Metoprolol Succinate 50 Mg Tablet PO 50 mg BID ANGIE Administration Morphine Sulfate 5 mg 02/09/25 18:53 02/10/25 08:38 Morphine Laina 10 Mg/0.5 Ml Oral Syringe PO 5 mg Q6H PRN Administration Severe Pain (Level 7-10) Nicotine 1 patch 02/08/25 09:00 02/10/25 08:44 Nicotine 14 Mg Patch TOP 1 patch DAILY ANGIE Administration Ondansetron HCl 4 mg 02/07/25 12:24 Ondansetron 4 Mg/2 Ml Vial IVP Q6HR PRN Nausea / Vomiting Ondansetron HCl 4 mg 02/07/25 12:24 Ondansetron Odt 4 Mg Tablet TL Q6HR PRN Nausea / Vomiting Pantoprazole Sodium 40 mg 02/08/25 07:00 02/10/25 16:50 Pantoprazole 40 Mg Tablet PO 40 mg BIDAC ANGIE Administration Ezetimibe 10 Mg 1 each 02/08/25 09:00 02/10/25 08:47 Tablet PO Not Given DAILY ANGIE Potassium Chloride 20 meq 02/09/25 08:00 02/10/25 08:43 Potassium Chloride 20 Meq Tablet PO 20 meq DAILYWM ANGIE Administration Sodium Chloride 10 ml 02/07/25 17:00 02/10/25 16:53 Sodium Chloride Flush 0.9% 10 Ml Syringe IVP 10 ml 0100,0900,1700 ANGIE Administration Sodium Chloride 10 ml 02/07/25 12:24 Sodium Chloride Flush 0.9% 10 Ml Syringe IVP PRN PRN NEEDED PER PROVIDER ORDERS Valacyclovir HCl 500 mg 02/08/25 09:00 02/10/25 08:42 Valacyclovir 500 Mg Tablet PO 500 mg DAILY ANGIE Administration
[2025-02-10 18:20] LABS: PT - PROTHROMBIN TIME 11.6 secs (9.9-12.6)
[2025-02-11 04:56] LABS: CALCIUM, IONIZED 1.35 mmol/L (1.09-1.30); VBG PH 7.465 (7.31-7.41)
[2025-02-11 05:07] LABS: MAGNESIUM 2.4 mg/dL (1.7-2.3); PHOSPHORUS 3.1 mg/dL (2.5-5.0); POTASSIUM 4.5 mmol/L (3.5-4.5)
[2025-02-11] MEDS: SODIUM CHLORIDE FLUSH 0.9% 10 ML SYRINGE IVP PRN (06:27)
--- NOTE | 2025-02-11 12:20 | PROVIDER PROGRESS NOTE ---
Subjective Subjective Subjective: Patient continues to have difficulty breathing. Overnight, she required BiPAP use. She spoke with hospice team, and she would like to go hospice. Plans were to attempt to do a thoracentesis today to provide symptomatic relief. However, the seed service advisor only saw small pocket of fluid, as such this was not able to be completed. Hospice team is able to do an intake as early as Tuesday the second. Patient requires nocturnal and daytime ventilation. Home BiPAP insufficient due to severity of condition. COPD is a primary cause of her chronic respiratory failure. NHP device needed to help with work of breathing and discomfort with tachypnea. Current Medications Current Medications Current Medications: Current Medications Generic Name Dose Route Start Last Admin Trade Name Freq PRN Reason Stop Dose Admin Acetaminophen 650 mg 02/07/25 12:24 02/07/25 21:05 Acetaminophen 325 Mg Tablet PO 650 mg Q4HR PRN Administration Pain 1 to 4, or Fever Hydrocodone Bitart/Acetaminophen 1 tab 02/09/25 10:23 02/11/25 04:48 Hydrocod/Acetam 5/325 Mg Tablet PO 1 tab Q4HR PRN Administration Moderate Pain (Level 4-6) Albuterol/Ipratropium 3 ml 02/07/25 15:00 02/11/25 07:35 Ipratropium/Albuterol 3 Ml Neb INH 3 ml RTQID ANGIE Administration Albuterol/Ipratropium 3 ml 02/07/25 17:59 02/09/25 20:09 Ipratropium/Albuterol 3 Ml Neb INH 3 ml Q4HR PRN Administration Wheezing Aspirin 81 mg 02/08/25 09:00 02/11/25 08:11 Aspirin Ec 81 Mg Tablet PO Not Given DAILY ANGIE Atorvastatin Calcium 80 mg 02/07/25 21:00 02/10/25 21:27 Atorvastatin 40 Mg Tablet PO 80 mg HS ANGIE Administration Budesonide 0.5 mg 02/09/25 19:00 02/11/25 07:35 Budesonide 0.5 Mg/2 Ml Neb INH 0.5 mg RTBID ANGIE Administration Clonidine HCl 0.1 mg 02/07/25 21:00 02/11/25 08:13 Clonidine 0.1 Mg Tablet PO 0.1 mg BID ANGIE Administration Clopidogrel Bisulfate 75 mg 02/08/25 09:00 02/11/25 08:11 Clopidogrel 75 Mg Tablet PO Not Given DAILY [facility] Docusate Sodium 100 mg 02/07/25 21:00 02/11/25 08:13 Docusate Sodium 100 Mg Capsule PO 100 mg BID [facility] Administration Enoxaparin Sodium 40 mg 02/08/25 09:00 02/11/25 08:12 Enoxaparin 40 Mg/0.4 Ml Syringe SUBQ Not Given DAILY [facility] Escitalopram Oxalate 5 mg 02/08/25 09:00 02/11/25 08:12 Escitalopram 10 Mg Tablet PO 5 mg DAILY ANGIE Administration Famotidine 20 mg 02/07/25 21:00 02/11/25 08:13 Famotidine 20 Mg Tablet PO 20 mg BID [facility] Administration Formoterol Fumarate 20 mcg 02/09/25 19:00 02/11/25 07:35 Formoterol Fumarate Neb 20 Mcg/2 Ml INH 20 mcg RTBID [facility] Administration Furosemide 40 mg 02/09/25 21:00 02/11/25 08:08 Furosemide 40 Mg/4 Ml Vial IVP 40 mg BID [facility] Administration Guaifenesin 600 mg 02/09/25 21:00 02/11/25 08:12 Guaifenesin 600 Mg Tablet PO 600 mg BID [facility] Administration Ibuprofen 400 mg 02/07/25 14:10 02/11/25 08:09 Ibuprofen 400 Mg Tablet PO 400 mg Q6HR PRN Administration Moderate Pain (Level 4-6) Insulin Glargine-yfgn 25 unit 02/08/25 21:00 02/10/25 21:15 Insulin Glargine-Yfgn 300 Unit/3 Ml Pen SUBQ 25 unit QPM ANGIE Administration Insulin Human Lispro 2 - 10 unit 02/08/25 12:00 02/11/25 07:56 Insulin Lispro 300 Unit/3 Ml Pen SUBQ Not Given 0800,1200,1700,2100 [facility] Protocol Isosorbide Mononitrate 30 mg 02/07/25 21:00 02/11/25 08:13 Isosorbide Mononitrate Er 30 Mg Tablet PO 30 mg BID [facility] Administration Lorazepam 0.5 mg 02/09/25 20:42 02/09/25 20:57 Lorazepam 2 Mg/Ml Vial IVP 0.5 mg Q2H PRN Administration Anxiety Losartan Potassium 50 mg 02/08/25 09:00 02/11/25 08:13 Losartan 50 Mg Tablet PO 50 mg DAILY ANGIE Administration Melatonin 6 mg 02/07/25 21:00 02/10/25 22:22 Melatonin 3 Mg Tablet PO 6 mg QPM ANGIE Administration Methylprednisolone 40 mg 02/09/25 14:00 02/11/25 06:27 Methylprednisolone Succinate 40 Mg/Ml Vial IVP 40 mg TID ANGIE Administration Metoprolol Succinate 50 mg 02/07/25 21:00 02/11/25 08:12 Metoprolol Succinate 50 Mg Tablet PO 50 mg BID ANGIE Administration Morphine Sulfate 5 mg 02/09/25 18:53 02/11/25 01:58 Morphine Laina 10 Mg/0.5 Ml Oral Syringe PO 5 mg Q6H PRN Administration Severe Pain (Level 7-10) Nicotine 1 patch 02/08/25 09:00 02/11/25 08:08 Nicotine 14 Mg Patch TOP 1 patch DAILY ANGIE Administration Ondansetron HCl 4 mg 02/07/25 12:24 Ondansetron 4 Mg/2 Ml Vial IVP Q6HR PRN Nausea / Vomiting Ondansetron HCl 4 mg 02/07/25 12:24 Ondansetron Odt 4 Mg Tablet TL Q6HR PRN Nausea / Vomiting Pantoprazole Sodium 40 mg 02/08/25 07:00 02/11/25 06:27 Pantoprazole 40 Mg Tablet PO 40 mg BIDAC ANGIE Administration Ezetimibe 10 Mg 1 each 02/08/25 09:00 02/11/25 07:58 Tablet PO Not Given DAILY ANGIE Polyethylene Glycol 17 gm 02/12/25 09:00 Polyethylene Glycol 3350 17 Gm Packet PO DAILY ANGIE Potassium Chloride 20 meq 02/09/25 08:00 02/11/25 07:57 Potassium Chloride 20 Meq Tablet PO Not Given DAILYWM ANGIE Sodium Chloride 10 ml 02/07/25 17:00 02/11/25 08:13 Sodium Chloride Flush 0.9% 10 Ml Syringe IVP 10 ml 0100,0900,1700 ANGIE Administration Sodium Chloride 10 ml 02/07/25 12:24 02/11/25 06:27 Sodium Chloride Flush 0.9% 10 Ml Syringe IVP 10 ml PRN PRN Administration NEEDED PER PROVIDER ORDERS Valacyclovir HCl 500 mg 02/08/25 09:00 02/11/25 08:08 Valacyclovir 500 Mg Tablet PO 500 mg DAILY ANGIE Administration Objective Vital Signs/Intake & Output Reviewed Vital Signs: Yes Vital Signs: Vital Signs x48h Temp Pulse Pulse Resp BP Pulse Ox O2 Flow Rate 02/11/25 12:00 98.7 F 67 17 155/61 H 92 2.5 02/11/25 11:00 65 19 125/65 94 2.5 02/11/25 11:00 66 13 125/65 94 2.5 02/11/25 10:00 74 18 148/59 H 93 2.5 02/11/25 09:00 74 17 155/65 H 91 L 2.5 02/11/25 08:00 98.2 F 76 23 185/79 H 91 L 2.5 02/11/25 07:46 2.5 02/11/25 07:46 72 18 02/11/25 07:35 2.5 02/11/25 07:11 170/122 H 02/11/25 07:00 64 20 167/129 H 94 02/11/25 07:00 3 02/11/25 06:00 54 L 15 150/86 H 96 02/11/25 05:55 54 L 02/11/25 05:00 3 02/11/25 05:00 57 L 18 167/67 H 96 Intake & Output: Intake & Output 02/08/25 02/09/25 02/10/25 02/11/25 23:59 23:59 23:59 23:59 Intake Total 1250 / 1250 1600 / 1600 2090 / 2090 920 / 920 Output Total 1475 / 1475 2200 / 2200 3065 / 3065 1780 / 1780 Balance -225 / -225 -600 / -600 -975 / -975 -860 / -860 Weight (kg) 83.5 kg 80 kg 80.5 kg 83.5 kg Objective General Appearance: positive No acute distress and Alert; negative Anxious Eyes Bilateral: positive Normal inspection, PERRL and EOMI ENT: positive ENT inspection nml, Pharynx nml and No signs of dehydration Neck: positive Nml inspection, Thyroid nml and No JVD Respiratory: positive Chest non-tender, No respiratory distress, Breath sounds nml, Wheezes (mild wheezing noted in all lung wilkerson ) and Other (Patient with pursed lip breathing, no accessory muscle use. ); negative Rales or Rhonchi Cardiovascular: positive Regular rate & rhythm, No murmur and No gallop Abdomen: positive Non-tender, No organomegaly, Nml bowel sounds and No distention Back: positive Nml inspection; negative CVA tenderness (R) or CVA tenderness (L) Skin: positive Color nml, No rash, Warm and Dry Extremities: positive Non-tender, Full ROM and Pedal edema (trace) Neurologic/Psychiatric: positive Oriented x3, Motor nml, Sensation nml and Mood/affect nml Lab Results 02/10/25 04:29 02/11/25 04:43 Other Labs: Lab Results x24hrs 02/11/25 02/11/25 02/11/25 Range/Units 11:52 07:44 04:43 PT (9.9-12.6) secs INR (0.8-1.2) VBG pH 7.465 H (7.31-7.41) Ionized Calcium 1.35 H (1.09-1.30) mmol/L Potassium 4.5 (3.5-4.5) mmol/L POC Whole Bld Glucose 196 116 (70-100) mg/dL Phosphorus 3.1 (2.5-5.0) mg/dL Magnesium 2.4 H (1.7-2.3) mg/dL 02/10/25 02/10/25 02/10/25 Range/Units 20:56 18:08 16:49 PT 11.6 (9.9-12.6) secs INR 1.0 (0.8-1.2) VBG pH (7.31-7.41) Ionized Calcium (1.09-1.30) mmol/L Potassium (3.5-4.5) mmol/L POC Whole Bld Glucose 241 201 (70-100) mg/dL Phosphorus (2.5-5.0) mg/dL Magnesium (1.7-2.3) mg/dL Diagnostic Imaging Diagnostic Imaging Results: positive Final report reviewed Assessment/Plan Problem List (1) Acute hypoxic respiratory failure: Impression: Patient has a longstanding history of COPD. She has a 75-year pack history. 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 For the past 20 years, her COPD has gotten worse. She is still actively smoking, although she has reduced it quite a bit. She requires 3 L of oxygen at baseline. Currently patient alternating between BiPAP for work of breathing and her 3 L of home oxygen while here. CTA does show moderate pleural effusion. Will continue with IV diuresis, Lasix 40 mg twice daily. We spoke about possible thoracentesis if the diuresis does not work for symptomatic improvement, the pocket of fluid was too small for this to be completed. Continue IV Solu-Medrol. Continue scheduled DuoNebs. Completed Rocephin for five days and azithromycin for three days possible superimposed bacterial pneumonia in setting of leukocytosis, chills at home, productive cough. Patient is interested in Hospice. Hospice consulted. Intake as early as Tuesday. (2) Pleural effusion: Impression: Continue diuresis as stated above. (3) COPD with acute exacerbation: Impression: Patient currently actively smoking. Remains on 3 L of oxygen at home. Is a DO NOT RESUSCITATE, DO NOT INTUBATE. Extensive code discussion, as well as goals of care discussion happened. (4) CAD (coronary artery disease): Impression: Patient states that she has a history of a CABG in the past. Continue aspirin, Plavix, statin. On telemetry, patient does go into rhythms where she has multiple PACs. Concern for underlying atrial fibrillation as well, although we have not been able to pick it up clearly on EKG. Qualifiers: Associated angina: without angina Coronary Disease-Associated Artery/Lesion type: unspecified vessel or lesion type [place] vs. transplanted heart: [place] heart Qualified Code(s): I25.10 - Atherosclerotic heart disease of [place] coronary artery without angina pectoris (5) Insulin dependent diabetes mellitus: Impression: Patient initially said she took 35 units of insulin at home, but then she was waking up to hypoglycemic episodes. We started her on 20 units here, as well as high-dose sliding scale. She has been hyperglycemic. Will increase to 35 units at night again tonight.
--- NOTE | 2025-02-11 17:23 | Ultrasound Report ---
PROCEDURE: US Chest INDICATIONS: hypoxia w left pleural effusion TECHNIQUE: Real-time scanning was performed, and a suitable site was marked by the customer support analyst for thoracentesis . COMPARISON: CT pulmonary angiogram 02/07/2025. FINDINGS: Small left pleural effusion. Insufficient pocket for safe thoracentesis. IMPRESSION: Small left pleural effusion. Thoracentesis not performed due to small quantity. Reviewed by: Shreyas Perea MD on 02/11/2025 5:22 PM PDT Approved by: Shreyas Perea MD on 02/11/2025 5:22 PM PDT Station ID: [id number]
[2025-02-12 04:36] LABS: MAGNESIUM 2.5 mg/dL (1.7-2.3); PHOSPHORUS 3.7 mg/dL (2.5-5.0); POTASSIUM 4.7 mmol/L (3.5-4.5)
[2025-02-12 04:39] LABS: CALCIUM, IONIZED 1.36 mmol/L (1.09-1.30); VBG PH 7.438 (7.31-7.41)
[2025-02-12] MEDS: polyethylene glycoL 3350 17 GM PACKET PO SCH (08:19)
--- NOTE | 2025-02-12 12:07 | PROVIDER PROGRESS NOTE ---
Subjective Subjective Subjective: Patient continues to have difficulty breathing. Overnight, she required BiPAP use. Plan is for Home Hospice tomorrow. She is feeling slightly better today. She is looking forward to going home tomorrow. We have set up home BiPAP which will hopefully be delivered tomorrow. She has no fevers or chills. She states that even with slight movement, she feels like her heart was racing. Current Medications Current Medications Current Medications: Current Medications Generic Name Dose Route Start Last Admin Trade Name Freq PRN Reason Stop Dose Admin Acetaminophen 650 mg 02/07/25 12:24 02/07/25 21:05 Acetaminophen 325 Mg Tablet PO 650 mg Q4HR PRN Administration Pain 1 to 4, or Fever Hydrocodone Bitart/Acetaminophen 1 tab 02/09/25 10:23 02/11/25 22:38 Hydrocod/Acetam 5/325 Mg Tablet PO 1 tab Q4HR PRN Administration Moderate Pain (Level 4-6) Albuterol/Ipratropium 3 ml 02/07/25 15:00 02/12/25 10:08 Ipratropium/Albuterol 3 Ml Neb INH 3 ml RTQID ANGIE Administration Albuterol/Ipratropium 3 ml 02/07/25 17:59 02/09/25 20:09 Ipratropium/Albuterol 3 Ml Neb INH 3 ml Q4HR PRN Administration Wheezing Aspirin 81 mg 02/08/25 09:00 02/12/25 08:16 Aspirin Ec 81 Mg Tablet PO 81 mg DAILY ANGIE Administration Atorvastatin Calcium 80 mg 02/07/25 21:00 02/11/25 21:01 Atorvastatin 40 Mg Tablet PO 80 mg HS ANGIE Administration Budesonide 0.5 mg 02/09/25 19:00 02/12/25 06:05 Budesonide 0.5 Mg/2 Ml Neb INH 0.5 mg RTBID ANGIE Administration Clonidine HCl 0.1 mg 02/07/25 21:00 02/12/25 08:17 Clonidine 0.1 Mg Tablet PO 0.1 mg BID ANGIE Administration Clopidogrel Bisulfate 75 mg 02/08/25 09:00 02/12/25 08:14 Clopidogrel 75 Mg Tablet PO 75 mg DAILY ANGIE Administration Docusate Sodium 100 mg 02/07/25 21:00 02/12/25 08:16 Docusate Sodium 100 Mg Capsule PO 100 mg BID ANGIE Administration Enoxaparin Sodium 40 mg 02/08/25 09:00 02/12/25 08:18 Enoxaparin 40 Mg/0.4 Ml Syringe SUBQ 40 mg DAILY ANGIE Administration Escitalopram Oxalate 5 mg 02/08/25 09:00 02/12/25 08:15 Escitalopram 10 Mg Tablet PO 5 mg DAILY ANGIE Administration Famotidine 20 mg 02/07/25 21:00 02/12/25 08:14 Famotidine 20 Mg Tablet PO 20 mg BID ANGIE Administration Formoterol Fumarate 20 mcg 02/09/25 19:00 02/12/25 06:05 Formoterol Fumarate Neb 20 Mcg/2 Ml INH 20 mcg RTBID ANGIE Administration Furosemide 40 mg 02/09/25 21:00 02/12/25 08:18 Furosemide 40 Mg/4 Ml Vial IVP 40 mg BID ANGIE Administration Guaifenesin 600 mg 02/09/25 21:00 02/12/25 08:15 Guaifenesin 600 Mg Tablet PO 600 mg BID ANGIE Administration Ibuprofen 400 mg 02/07/25 14:10 02/12/25 06:05 Ibuprofen 400 Mg Tablet PO 400 mg Q6HR PRN Administration Moderate Pain (Level 4-6) Insulin Glargine-yfgn 20 unit 02/12/25 21:00 Insulin Glargine-Yfgn 300 Unit/3 Ml Pen SUBQ QPM [facility] Insulin Human Lispro 2 - 10 unit 02/08/25 12:00 02/12/25 08:19 Insulin Lispro 300 Unit/3 Ml Pen SUBQ Not Given 0800,1200,1700,2100 [facility] Protocol Isosorbide Mononitrate 30 mg 02/07/25 21:00 02/12/25 08:16 Isosorbide Mononitrate Er 30 Mg Tablet PO 30 mg BID [facility] Administration Lorazepam 0.5 mg 02/09/25 20:42 02/09/25 20:57 Lorazepam 2 Mg/Ml Vial IVP 0.5 mg Q2H PRN Administration Anxiety Losartan Potassium 50 mg 02/08/25 09:00 02/12/25 08:17 Losartan 50 Mg Tablet PO 50 mg DAILY ANGIE Administration Melatonin 6 mg 02/07/25 21:00 02/11/25 21:43 Melatonin 3 Mg Tablet PO 6 mg QPM [facility] Administration Methylprednisolone 40 mg 02/09/25 14:00 02/12/25 06:05 Methylprednisolone Succinate 40 Mg/Ml Vial IVP 40 mg TID ANGIE Administration Metoprolol Succinate 50 mg 02/07/25 21:00 02/12/25 08:17 Metoprolol Succinate 50 Mg Tablet PO 50 mg BID ANGIE Administration Morphine Sulfate 5 mg 02/09/25 18:53 02/11/25 20:02 Morphine Laina 10 Mg/0.5 Ml Oral Syringe PO 5 mg Q6H PRN Administration Severe Pain (Level 7-10) Nicotine 1 patch 02/08/25 09:00 02/12/25 08:20 Nicotine 14 Mg Patch TOP 1 patch DAILY ANGIE Administration Ondansetron HCl 4 mg 02/07/25 12:24 Ondansetron 4 Mg/2 Ml Vial IVP Q6HR PRN Nausea / Vomiting Ondansetron HCl 4 mg 02/07/25 12:24 Ondansetron Odt 4 Mg Tablet TL Q6HR PRN Nausea / Vomiting Pantoprazole Sodium 40 mg 02/08/25 07:00 02/12/25 06:05 Pantoprazole 40 Mg Tablet PO 40 mg BIDAC ANGIE Administration Ezetimibe 10 Mg 1 each 02/08/25 09:00 02/12/25 08:25 Tablet PO Not Given DAILY ANGIE Polyethylene Glycol 17 gm 02/12/25 09:00 02/12/25 08:19 Polyethylene Glycol 3350 17 Gm Packet PO Not Given DAILY ANGIE Sodium Chloride 10 ml 02/07/25 17:00 02/12/25 08:20 Sodium Chloride Flush 0.9% 10 Ml Syringe IVP 10 ml 0100,0900,1700 ANGIE Administration Sodium Chloride 10 ml 02/07/25 12:24 02/12/25 06:05 Sodium Chloride Flush 0.9% 10 Ml Syringe IVP 10 ml PRN PRN Administration NEEDED PER PROVIDER ORDERS Valacyclovir HCl 500 mg 02/08/25 09:00 02/12/25 08:25 Valacyclovir 500 Mg Tablet PO 500 mg DAILY ANGIE Administration Objective Vital Signs/Intake & Output Reviewed Vital Signs: Yes Vital Signs: Vital Signs x48h Temp Pulse Pulse Resp BP Pulse Ox O2 Flow Rate 02/12/25 11:00 81 23 128/47 L 92 2.5 02/12/25 11:00 2.5 02/12/25 10:09 75 23 02/12/25 10:00 70 19 83/63 L 92 02/12/25 09:00 71 16 143/78 H 93 2.5 02/12/25 09:00 2.5 02/12/25 08:30 2.5 02/12/25 08:00 97.9 F 61 18 132/57 H 95 02/12/25 07:15 60 02/12/25 07:00 68 21 145/55 H 94 02/12/25 06:05 3 02/12/25 06:05 62 20 3 02/12/25 06:00 68 23 135/62 H 94 2.5 02/12/25 05:00 2.5 02/12/25 05:00 57 L 13 129/56 L 95 2.5 Intake & Output: Intake & Output 02/09/25 02/10/25 02/11/25 02/12/25 23:59 23:59 23:59 23:59 Intake Total 1600 / 1600 2090 / 2090 1500 / 1500 980 / 980 Output Total 2200 / 2200 3065 / 3065 3930 / 3930 1999 / 1999 Balance -600 / -600 -975 / -975 -2430 / -2430 -1020 / -1020 Weight (kg) 80 kg 80.5 kg 83.5 kg 85.5 kg Objective General Appearance: positive No acute distress and Alert; negative Anxious Eyes Bilateral: positive Normal inspection, PERRL and EOMI ENT: positive ENT inspection nml, Pharynx nml and No signs of dehydration Neck: positive Nml inspection, Thyroid nml and No JVD Respiratory: positive Chest non-tender, No respiratory distress, Breath sounds nml, Wheezes (mild wheezing noted in all lung wilkerson ) and Other (Patient with pursed lip breathing, no accessory muscle use. ); negative Rales or Rhonchi Cardiovascular: positive Regular rate & rhythm, No murmur and No gallop Abdomen: positive Non-tender, No organomegaly, Nml bowel sounds and No distention Back: positive Nml inspection; negative CVA tenderness (R) or CVA tenderness (L) Skin: positive Color nml, No rash, Warm and Dry Extremities: positive Non-tender, Full ROM and Pedal edema (trace) Neurologic/Psychiatric: positive Oriented x3, Motor nml, Sensation nml and Mood/affect nml Lab Results 02/10/25 04:29 02/12/25 04:17 Other Labs: Lab Results x24hrs 02/12/25 02/12/25 02/12/25 Range/Units 11:55 07:51 04:17 VBG pH 7.438 H (7.31-7.41) Ionized Calcium 1.36 H (1.09-1.30) mmol/L Sodium 140 (135-145) mmol/L Potassium 4.7 H (3.5-4.5) mmol/L POC Whole Bld Glucose 312 122 (70-100) mg/dL Phosphorus 3.7 (2.5-5.0) mg/dL Magnesium 2.5 H (1.7-2.3) mg/dL 02/11/25 02/11/25 Range/Units 20:24 16:54 VBG pH (7.31-7.41) Ionized Calcium (1.09-1.30) mmol/L Sodium (135-145) mmol/L Potassium (3.5-4.5) mmol/L POC Whole Bld Glucose 316 177 (70-100) mg/dL Phosphorus (2.5-5.0) mg/dL Magnesium (1.7-2.3) mg/dL Diagnostic Imaging Diagnostic Imaging Results: positive Final report reviewed Assessment/Plan Problem List (1) Acute hypoxic respiratory failure: Impression: Patient has a longstanding history of COPD. She has a 75-year pack history. 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 For the past 20 years, her COPD has gotten worse. She is still actively smoking, although she has reduced it quite a bit. She requires 3 L of oxygen at baseline. Currently patient alternating between BiPAP for work of breathing and her 3 L of home oxygen while here. CTA does show moderate pleural effusion. Will continue with IV diuresis, Lasix 40 mg twice daily. Will switch to oral Lasix tomorrow. We spoke about possible thoracentesis if the diuresis does not work for symptomatic improvement, the pocket of fluid was too small for this to be completed. Continue IV Solu-Medrol. Will switch to oral prednisone tomorrow. Continue scheduled DuoNebs. Completed Rocephin for five days and azithromycin for three days possible superimposed bacterial pneumonia in setting of leukocytosis, chills at home, productive cough. Patient is interested in Hospice. Plan for intake at home tomorrow. (2) Pleural effusion: Impression: Continue diuresis as stated above. (3) COPD with acute exacerbation: Impression: Patient currently actively smoking. Remains on 3 L of oxygen at home. Is a DO NOT RESUSCITATE, DO NOT INTUBATE. Extensive code discussion, as well as goals of care discussion happened. (4) CAD (coronary artery disease): Impression: Patient states that she has a history of a CABG in the past. Continue aspirin, Plavix, statin. On telemetry, patient does go into rhythms where she has multiple PACs. Concern for underlying atrial fibrillation as well, although we have not been able to pick it up clearly on EKG. Qualifiers: Associated angina: without angina Coronary Disease-Associated Artery/Lesion type: unspecified vessel or lesion type [place] vs. transplanted heart: [place] heart Qualified Code(s): I25.10 - Atherosclerotic heart disease of [place] coronary artery without angina pectoris (5) Insulin dependent diabetes mellitus: Impression: Patient initially said she took 35 units of insulin at home, but then she was waking up to hypoglycemic episodes. We started her on 20 units here, as well as high-dose sliding scale.
[2025-02-12] MEDS: INSULIN GLARGINE-YFGN 300 UNIT/3 ML PEN SUBQ SCH (20:48)
[2025-02-13 04:45] LABS: HGB - HEMOGLOBIN 11.9 g/dL (12.0-16.0); MEAN CORPUSCULAR HEMOGLOBIN 32.4 pg (27.0-31.0); MEAN CORPUSCULAR HGB CONC 32.2 g/dL (32.0-36.0); MEAN CORPUSCULAR VOLUME 100.8 fL (81.0-99.0); RED BLOOD COUNT 3.67 10^6/uL (4.20-5.40); RED CELL DISTRIBUTION WIDTH 14.6 % (12.0-15.0); WHITE BLOOD COUNT 17.2 x10^3/uL (4.8-10.8)
[2025-02-13 04:58] LABS: CALCIUM 10.2 mg/dL (8.5-10.3); MAGNESIUM 2.4 mg/dL (1.7-2.3); PHOSPHORUS 3.1 mg/dL (2.5-5.0); POTASSIUM 4.6 mmol/L (3.5-4.5)
[2025-02-13 05:45] LABS: CALCIUM, IONIZED 1.36 mmol/L (1.09-1.30); VBG PH 7.504 (7.31-7.41)
--- NOTE | 2025-02-13 08:10 | Discharge Summary ---
Discharge Summary Admit Date: 02/07/25 Discharge Date: 02/13/25 Discharging Provider: Dr. Lissa Bernstein Primary Care Provider: Unknown Code Status: Do Not Attempt Resuscitation Discharge Facility Name: Home with Hospice DIAGNOSES Admission Diagnoses: Acute hypoxic respiratory failure COPD with acute exacerbation CAD Insulin-dependent diabetes mellitus Discharge Diagnoses with Status of Each Condition: Acute hypoxic respiratory failure patient is now back at her baseline of 3 L. Completed course of IV antibiotics for community-acquired pneumonia. Received IV steroids, will discharge her on oral prednisone for 5 additional days. Continue oral Lasix 40 mg daily. Spoke with hospice team, plan is to go home with hospice. Hospital bed, BiPAP will be delivered today. Pleural effusion completed diuresis. Thoracentesis was attempted but the pocket was too small. Continue Lasix on discharge. COPD with acute exacerbation see above. Remains on 3 L, alternating with BiPAP. CAD continue home medications including aspirin Plavix, statin. Insulin-dependent diabetes mellitus continue lower dose of insulin 20 units at night, as well as sliding scale. HPI History of Present Illness: Patient is a 79-year-old female with a history of COPD on 3 L of oxygen at home who presents with worsening dyspnea, cough at home. She states that it has been going on for 2 weeks, and has steadily been worsening. She had some prednisone at home, and has been utilizing it daily without any relief. She also has multiple inhalers at home that she has been using without any relief. She denies any sick contacts. She takes daily Lasix every day, and has not missed any doses. She states that initially it started off with a cough, initially was yellow to green sputum production, and then she states that she has been coughing up some blood. She has also had some ongoing chills. She also complains of some postnasal drip and a sore throat. She used to smoke about 4 to 5 packs of cigarettes a day. She is now down to 1 pack every 3 to 4 days. In the emergency room, when patient presented, she was saturating 100%, but she came in on BIPAP. She is normotensive with blood pressure 120/59, heart rate was 102, respiratory rate was initially 40, and improved to 20. She was given a dose of IV Solu-Medrol, received breathing treatments, as well as Rocephin and azithromycin, and was admitted for acute hypoxic respiratory failure. CTA done on admission showed no pulmonary embolism, but did show a moderate left-sided pleural effusion with some compressive atelectasis in the left lower lobe. She also has a moderate centrilobular emphysema, as well as multiple nodules. CONSULTS | PROCEDURES Consultations: Hospice, RT, PT/OT, SW Procedures: Chest ultrasound, CTA, chest x-ray HOSPITAL COURSE Hospital Course: Patient is a 79-year-old female with a history of COPD on 3 L of oxygen at home, CAD, hypertension who presented with acute hypoxic respiratory failure. She required the BiPAP initially. CT chest was done which showed moderate left- sided pleural effusion, compressive atelectasis in the left lower lobe, as well as moderate centrilobular emphysema. She was started on IV steroids, IV Lasix, as well as IV antibiotics for possible con commitment pneumonia. She improved a little bit, but was still requiring BiPAP for few hours a day. She expressed that she was frustrated with her underlying disease, and that she had required oxygen for over 10 years, and she was getting very tired. She asked about a hospice consult, which was placed. Plan is now for her to go home with home hospice. Hospice team was consulted, and they made arrangements for home hospital bed, as well as a home BiPAP. She was discharged home with hospice. Will continue her on oral prednisone, as well as oral Lasix to help maximize her respiratory status, as well as her home inhalers. She was also given liquid morphine as needed for her air hunger. Hospice is planning on intake an hour after she gets home. She was discharged home via BLS. ALLERGIES Allergies Allergy/AdvReac Type Severity Reaction Status Date / Time adhesive Allergy Itching Verified 02/07/25 08:33 latex Allergy unknown Verified 02/07/25 08:33 Sulfa (Sulfonamide Allergy rash Verified 02/07/25 08:33 Antibiotics) "deathly sick" MEDICATIONS Ambulatory Orders Medication Instructions Recorded Confirmed budesonide-formoterol HFA 160 2 puff inhalation DAILY 04/18/13 02/07/25 mcg-4.5 mcg/actuation aerosol inhaler (Symbicort) ibuprofen 800 mg tablet 800 mg PO Q8H PRN PAIN &/OR FEVER 04/18/13 02/07/25 albuterol sulfate 2.5 mg/3 mL 2.5 mg inhalation PRN PRN As 04/19/18 02/07/25 (0.083 %) solution for nebulization Needed Per Provider Orders Pgx Daily 1 tab PO DAILY 06/03/20 02/07/25 ipratropium 0.5 mg-albuterol 3 mg 1 applic PO Q4HR 06/03/20 02/07/25 (2.5 mg base)/3 mL nebulization soln nitroglycerin 0.4 mg sublingual 0.4 mg sublingual PRN Angina 06/03/20 02/07/25 tablet benzonatate 200 mg capsule 200 mg PO BID PRN cough 02/07/25 02/07/25 calcium 315 mg (as 1 tab PO BID 02/07/25 02/07/25 citrate)-vitamin D3 5 mcg (200 unit) tablet (Calcium Citrate + D) chromium picolinate 500 mcg capsule 500 mcg PO TID 02/07/25 02/07/25 docusate sodium 100 mg tablet 100 mg PO BID 02/07/25 02/07/25 levalbuterol HCl 0.63 mg/3 mL 0.63 mg inhalation Q4H PRN 02/07/25 02/07/25 solution for nebulization shortness of breath or wheezing loratadine 10 mg tablet 10 mg PO DAILY 02/07/25 02/07/25 montelukast 5 mg chewable tablet 5 mg PO DAILY PM 02/07/25 02/07/25 aspirin 81 mg tablet,delayed 81 mg PO DAILY #30 tabs 02/13/25 release (Adult Aspirin Regimen) atorvastatin 80 mg tablet (Lipitor) 80 mg PO HS #30 tabs 02/13/25 clonidine HCl 0.1 mg tablet 0.1 mg PO BID #60 tabs 02/13/25 clopidogrel 75 mg tablet 75 mg PO DAILY 30 days #30 tabs 02/13/25 escitalopram oxalate 5 mg tablet 5 mg PO DAILY 30 days #30 tabs 02/13/25 furosemide 40 mg tablet (Lasix) 40 mg PO DAILY #30 tabs 02/13/25 insulin aspart U-100 100 unit/mL 1 sliding scale dose subcut AC #15 02/13/25 (3 mL) subcutaneous pen (Novolog mL FlexPen U-100 Insulin aspart) insulin glargine 100 unit/mL (3 20 unit (0.2 mL) subcut QPM #15 mL 02/13/25 02/07/25 mL) subcutaneous pen (Lantus Solostar U-100 Insulin) isosorbide mononitrate 30 mg 30 mg PO BID 30 days #60 tabs 02/13/25 tablet,extended release 24 hr lorazepam 0.5 mg tablet 0.5 mg PO BID 3 days #6 tabs 02/13/25 losartan 50 mg tablet 50 mg PO DAILY #30 tabs 02/13/25 metoprolol succinate 50 mg 50 mg PO BID #60 tabs 02/13/25 tablet,extended release 24 hr morphine 10 mg/5 mL oral solution 5 mg (2.5 mL) PO Q4H 3 days #45 mL 02/13/25 omeprazole 40 mg capsule,delayed 40 mg PO BIDAC #60 caps 02/13/25 release ondansetron 4 mg disintegrating 4 mg translingual Q6HR PRN Nausea 02/13/25 tablet / Vomiting #30 tabs prednisone 20 mg tablet 40 mg (2 x 20 mg) PO DAILYWM 5 02/13/25 days #10 tabs valacyclovir 500 mg tablet 500 mg PO DAILY #30 tabs 02/13/25 PHYSICAL EXAM AT DISCHARGE Vital Signs: Vital Signs x48h Temp Pulse Pulse Resp BP Pulse Ox O2 Flow Rate 02/13/25 10:28 71 22 163/64 H 95 3 02/13/25 10:12 3 02/13/25 09:00 71 23 161/70 H 97 2.5 02/13/25 08:27 98.3 F 70 20 169/75 H 90 L 3 02/13/25 08:05 3 02/13/25 08:05 64 22 02/13/25 08:01 65 General Appearance: positive No acute distress, Alert and Anxious Eyes Bilateral: positive Normal inspection, PERRL and EOMI ENT: positive ENT inspection nml, Pharynx nml and No signs of dehydration Neck: positive Nml inspection, Thyroid nml and No JVD Respiratory: positive Chest non-tender and Wheezes (mild, improved); negative No respiratory distress (mild) Cardiovascular: positive Regular rate & rhythm, No murmur and No gallop Peripheral Pulses: positive 2+ Abdomen: positive Non-tender, No organomegaly, Nml bowel sounds and No distention; negative Tenderness, Guarding or Rebound Back: positive Nml inspection; negative CVA tenderness (R) or CVA tenderness (L) Skin: positive Color nml, No rash and Warm Extremities: positive Non-tender, Full ROM and Nml appearance Neurologic/Psychiatric: positive Oriented x3 and Mood/affect nml LABS 02/13/25 04:32 02/13/25 04:32 DIAGNOSTIC IMAGING Diagnostic Imaging Results: Final report reviewed FOLLOW UP Follow Up: Follow up with Hospice team. TIME SPENT Time Spent in Discharge (Minutes): 35 Discharge Plan Discharge Patient Disposition: 50 Hospice/Home DC/Xfer Prescriptions: New prednisone 20 mg Tablet 40 mg PO DAILYWM 5 Days Qty: 10 0RF ondansetron 4 mg Tablet,Disintegrating 4 mg translingual Q6HR PRN (Reason: Nausea / Vomiting) Qty: 30 0RF morphine 10 mg/5 mL solution 5 mg PO Q4H 3 Days Qty: 45 0RF Continued ibuprofen 800 MG tablet 800 mg PO Q8H PRN (Reason: PAIN &/OR FEVER) budesonide-formoterol [Symbicort] 10.2 GM HFA aerosol inhaler 2 puff inhalation DAILY albuterol sulfate 2.5 MG/3 ML solution for nebulization 2.5 mg inhalation PRN PRN (Reason: As Needed Per Provider Orders) ipratropium-albuterol 3 ML solution for nebulization 1 applic PO Q4HR nitroglycerin 0.4 MG tablet, sublingual 0.4 mg sublingual PRN Rx Instructions: PER LABEL INSTRUCTION Pgx Daily 1 tab PO DAILY benzonatate 200 mg capsule 200 mg PO BID PRN (Reason: cough) montelukast 5 mg tablet,chewable 5 mg PO DAILY PM levalbuterol HCl 0.63 mg/3 mL solution for nebulization 0.63 mg INHALATION Q4H PRN (Reason: shortness of breath or wheezing) loratadine 10 mg tablet 10 mg PO DAILY docusate sodium 100 mg tablet 100 mg PO BID chromium picolinate 500 mcg capsule 500 mcg PO TID calcium citrate-vitamin D3 [Calcium Citrate + D] 315 mg-5 mcg (200 unit) tablet 1 tab PO BID losartan 50 mg tablet 50 mg PO DAILY Qty: 30 0RF furosemide [Lasix] 40 MG tablet 40 mg PO DAILY Qty: 30 0RF atorvastatin [Lipitor] 80 MG tablet 80 mg PO HS Qty: 30 0RF clonidine HCl 0.1 mg tablet 0.1 mg PO BID Qty: 60 0RF metoprolol succinate 50 mg tablet extended release 24 hr 50 mg PO BID Qty: 60 0RF isosorbide mononitrate 30 MG tablet extended release 24 hr 30 mg PO BID 30 Days Qty: 60 0RF clopidogrel 75 mg tablet 75 mg PO DAILY 30 Days Qty: 30 0RF valacyclovir 500 mg tablet 500 mg PO DAILY Qty: 30 0RF omeprazole 40 mg capsule,delayed release(DR/EC) 40 mg PO BIDAC Qty: 60 0RF aspirin [Adult Aspirin Regimen] 81 mg tablet,delayed release (DR/EC) 81 mg PO DAILY Qty: 30 0RF lorazepam 0.5 MG tablet 0.5 mg PO BID 3 Days Qty: 6 0RF insulin aspart U-100 [Novolog FlexPen U-100 Insulin] 100 unit/mL (3 mL) insulin pen 1 sliding scale dose SUBCUT AC Qty: 15 0RF escitalopram oxalate 5 mg tablet 5 mg PO DAILY 30 Days Qty: 30 0RF Changed insulin glargine [Lantus Solostar U-100 Insulin] 100 unit/mL (3 mL) insulin pen 20 unit SUBCUT QPM Qty: 15 0RF Discontinued ezetimibe 10 MG tablet 10 meq PO DAILY Activity Restrictions: Activity as Tolerated Diet: Regular Health Concerns: You came in because you were feeling very short of breath. You were having another exacerbation of your COPD. I understand that you have been dealing with this for many years. We are worried that a pneumonia triggered an exacerbation. We treated you with IV antibiotics, IV steroids. We had multiple conversations about what your goals would look like. You stated that you prioritize spending time at home with your family, and that you wanted to be more comfortable. The hospice team spoke with you, and we have decided to move forward with hospice care. They are delivering a hospice bed, as well as a BiPAP machine to your house today. I want you to continue a few more days of steroids, and continue the water pill, Lasix. I have also prescribed some morphine which should help with your work of breathing, and you can take as needed. I am glad you are feeling a little bit better. I am glad we can make you more comfortable. Thank you for allowing us to take care of you. Print Language: Amharic Patient Instructions: Hospital Dc Stand Alone Forms: PCP List Other Ambulatory Orders: CPAP/BiPAP (Routine) Location: None Selected Ordered By: Lissa Bernstein CPAP/BiPAP (Routine) Location: None Selected Ordered By: Lissa Bernstein
[2025-02-13] MEDS: predniSONE 20 MG TABLET PO SCH (08:17)
[2025-02-13] MEDS: FUROSEMIDE 40 MG TABLET PO SCH (08:19)
[2025-02-13 08:28] VITALS: TEMP 98.3
[2025-02-13 10:32] VITALS: BP 163/64; O2SAT 95
== END 2025-02-13 10:52 | disposition hospice, home (50) | DRG 189 ==
LOC: ED 08:10 → ICU 11:47
PROVIDERS: ADMIT Internal Medicine; ATTEND Internal Medicine
DX: J18.9 Pneumonia, unspecified organism; Z79.02 Long term (current) use of antithrombotics/antiplatelets; J90 Pleural effusion, not elsewhere classified; Z99.81 Dependence on supplemental oxygen; F17.210 Nicotine dependence, cigarettes, uncomplicated; J96.21 Acute and chronic respiratory failure with hypoxia; E11.65 Type 2 diabetes mellitus with hyperglycemia; J44.0 Chronic obstructive pulmonary disease with (acute) lower respiratory infection; I25.10 Atherosclerotic heart disease of native coronary artery without angina pectoris; Z66 Do not resuscitate; Z79.4 Long term (current) use of insulin; J43.9 Emphysema, unspecified; R00.0 Tachycardia, unspecified; J44.1 Chronic obstructive pulmonary disease with (acute) exacerbation